=== PATIENT | male | born 1955 | race Two or more races ===

== ENCOUNTER 2017-03-31 20:14 | Inpatient (IN) | payer MEDICARE, MEDICAID ==
[~2017-03-31] VITALS: Ht 182.9 cm; Wt 70.4 kg
[2017-03-31 20:35] VITALS: BP 124/80
[2017-03-31] MEDS ORDERED: Vancomycin 1.5gm/D5W 250ml 250 ML IVPB ONE (21:15)
[2017-03-31] MEDS ORDERED: Azithromycin 500 MG in NS 275 ML IV ONE (21:15)
[2017-03-31 21:18] LABS: HEMATOCRIT 35.2 % (42.0-52.0); HEMOGLOBIN 11.8 G/DL (14.2-18.0); MEAN CORPUSCULAR VOLUME 85 FL (80-99); PLATELET COUNT 373 K/UL (150-450); RED BLOOD COUNT 4.15 M/UL (4.70-6.10); RED CELL DISTRIBUTION WIDTH 13.3 % (11.6-14.8); WHITE BLOOD COUNT 16.2 K/UL (4.8-10.8)
[2017-03-31 21:19] LABS: BASOPHILS % (AUTO) 0.3 % (0.0-2.0); LYMPHOCYTES % (AUTO) 4.8 % (20.0-45.0); MONOCYTES % (AUTO) 8.3 % (1.0-10.0); NEUTROPHILS % (AUTO) 86.6 % (45.0-75.0)
[2017-03-31 21:35] LABS: ANION GAP 8 mmol/L (5-15); BLOOD UREA NITROGEN 15 mg/dL (7-18); CALCIUM 8.8 MG/DL (8.5-10.1); CARBON DIOXIDE 26 MMOL/L (21-32); CHLORIDE 94 MMOL/L (98-107); CREATININE 0.6 MG/DL (0.55-1.30); POTASSIUM 4.2 MMOL/L (3.5-5.1); SODIUM 128 MMOL/L (136-145)
--- NOTE | 2017-03-31 21:47 | Emergency Room Report ---
History of Present Illness General Chief Complaint: Fever Source: Patient, EMS, PMD Present Illness HPI 61-year-old male, history of hypertension, hyperlipidemia, schizophrenia, anxiety disorder, p/w cough and fever for 3 days. Patient is coming from jail, he is a poor historian. Pt states cough is productive, with clear non bloody sputum. Denies runny nose or myalgias. No chest pain no abdominal pain no diarrhea or vomiting Allergies: Coded Allergies: HALOPERIDOL (Verified Allergy, Mild, 03/31/17) Patient History Past Medical History: see triage record Past Surgical History: none Pertinent Family History: none Reviewed Nursing Documentation: PMH: Agreed, PSxH: Agreed Nursing Documentation-PMH Hx Hypertension: Yes - hyperlipidemia History Of Psychiatric Problem: Yes - anxiety, schizophrenia Review of Systems All Other Systems: negative except mentioned in HPI Physical Exam Vital Signs Date Time Temp Pulse Resp B/P (MAP) Pulse Ox O2 Delivery O2 Flow Rate FiO2 03/31/17 20:06 98.5 116 20 124/80 96 Nasal Cannula 2.0 98.4 Sp02 EP Interpretation: reviewed, normal General Appearance: alert, GCS 15, non-toxic, moderate distress Head: normocephalic, atraumatic Eyes: bilateral eye normal inspection, bilateral eye PERRL, bilateral eye EOMI ENT: normal ENT inspection, normal pharynx, normal voice, moist mucus membranes Neck: normal inspection, full range of motion, supple Respiratory: other - coarse b/s L lung base Cardiovascular #1: normal inspection, regular rate, rhythm, no edema, normal capillary refill Cardiovascular #2: 2+ radial (R), 2+ radial (L) Gastrointestinal: normal inspection, non tender, soft, non-distended, no guarding Genitourinary: no CVA tenderness Musculoskeletal: normal inspection, back normal, normal range of motion, non- tender Neurologic: normal inspection, alert, oriented x3, responsive, motor strength/ tone normal, sensory intact, normal gait, speech normal Psychiatric: normal inspection, judgement/insight normal, memory normal Skin: normal inspection, normal color, no rash, warm/dry, well hydrated, normal turgor Medical Decision Making Diagnostic Impression: Primary Impression: HCAP (healthcare-associated pneumonia) Additional Impression: NSTEMI (non-ST elevated myocardial infarction) ER Course 61-year-old male, coming from jail, cough fever and chills DDX: Viral URI vs. pneumonia Plan: Labs, CXR, antibiotics ER course: Labs: leukocytosis Continues to be in mild/moderate respiratory distress. IV fluids given to patient, antibiotics administered afib- HR 100 NSTEMI noted - pt not having CP - asa given only Disposition: Patient is to be admitted to [facility] D/w hospitalist Dr Juarez EKG Diagnostic Results EP Interpretation: Yes Rate: tachy Rhythm: afib ST Segments: No acute changes ASA given to patient: No Rhythm Strip EP Interpretation: Yes Rate: 89 Rhythm: NSR, no PVCs, no ectopy Chest X-ray CXR: Ordered: Yes 1 view Indication: SOB EP interpretation: Yes Interpretation: +Infiltrate left sided Impression: L sided pneumonia Electronically signed by Hamzah Kelly MD Laboratory Tests Test 03/31/17 20:47 04/01/17 06:50 04/01/17 09:34 White Blood Count 16.2 K/UL (4.8-10.8) H 16.4 K/UL (4.8-10.8) H 17.3 K/UL (4.8-10.8) H Red Blood Count 4.15 M/UL (4.70-6.10) L 4.25 M/UL (4.70-6.10) L 4.45 M/UL (4.70-6.10) L Hemoglobin 11.8 G/DL (14.2-18.0) L 12.4 G/DL (14.2-18.0) L 12.8 G/DL (14.2-18.0) L Hematocrit 35.2 % (42.0-52.0) L 36.4 % (42.0-52.0) L 38.0 % (42.0-52.0) L Mean Corpuscular Volume 85 FL (80-99) 86 FL (80-99) 86 FL (80-99) Mean Corpuscular Hemoglobin 28.4 PG (27.0-31.0) 29.1 PG (27.0-31.0) 28.8 PG (27.0-31.0) Mean Corpuscular Hemoglobin Concent 33.6 G/DL (32.0-36.0) 34.0 G/DL (32.0-36.0) 33.6 G/DL (32.0-36.0) Red Cell Distribution Width 13.3 % (11.6-14.8) 14.0 % (11.6-14.8) 13.9 % (11.6-14.8) Platelet Count 373 K/UL (150-450) 375 K/UL (150-450) 409 K/UL (150-450) Mean Platelet Volume 4.9 FL (6.5-10.1) L 4.3 FL (6.5-10.1) L 4.7 FL (6.5-10.1) L Neutrophils (%) (Auto) 86.6 % (45.0-75.0) H % (45.0-75.0) % (45.0-75.0) Lymphocytes (%) (Auto) 4.8 % (20.0-45.0) L % (20.0-45.0) % (20.0-45.0) Monocytes (%) (Auto) 8.3 % (1.0-10.0) % (1.0-10.0) % (1.0-10.0) Eosinophils (%) (Auto) 0.0 % (0.0-3.0) % (0.0-3.0) % (0.0-3.0) Basophils (%) (Auto) 0.3 % (0.0-2.0) % (0.0-2.0) % (0.0-2.0) Sodium Level 128 MMOL/L (136-145) L 130 MMOL/L (136-145) L Potassium Level 4.2 MMOL/L (3.5-5.1) 4.1 MMOL/L (3.5-5.1) Chloride Level 94 MMOL/L (98-107) L 95 MMOL/L (98-107) L Carbon Dioxide Level 26 MMOL/L (21-32) 27 MMOL/L (21-32) Anion Gap 8 mmol/L (5-15) 8 mmol/L (5-15) Blood Urea Nitrogen 15 mg/dL (7-18) 15 mg/dL (7-18) Creatinine 0.6 MG/DL (0.55-1.30) 0.6 MG/DL (0.55-1.30) Estimate Glomerular Filtration Rate > 60 mL/min (>60) > 60 mL/min (>60) Glucose Level 172 MG/DL (74-106) H 129 MG/DL (74-106) H Lactic Acid Level 1.60 mmol/L (0.66-2.22) Calcium Level 8.8 MG/DL (8.5-10.1) 9.2 MG/DL (8.5-10.1) Total Bilirubin 1.1 MG/DL (0.2-1.0) H 1.0 MG/DL (0.2-1.0) Direct Bilirubin 0.4 MG/DL (0.0-0.3) H Aspartate Amino Transferase (AST) 46 U/L (15-37) H 60 U/L (15-37) H Alanine Aminotransferase (ALT) 50 U/L (12-78) 68 U/L (12-78) Alkaline Phosphatase 132 U/L (46-116) H 157 U/L (46-116) H Troponin I 0.528 ng/mL (0.000-0.056) 0.394 ng/mL (0.000-0.056) Pro-B-Type Natriuretic Peptide 3638 pg/mL (0-125) H 7873 pg/mL (0-125) H 8268 pg/mL (0-125) H Total Protein 6.6 G/DL (6.4-8.2) 8.2 G/DL (6.4-8.2) Albumin 2.7 G/DL (3.4-5.0) L 2.7 G/DL (3.4-5.0) L Globulin 3.9 g/dL 5.5 g/dL Albumin/Globulin Ratio 0.7 (1.0-2.7) L 0.5 (1.0-2.7) L Differential Total Cells Counted 100 100 Neutrophils % (Manual) 86 % (45-75) H 85 % (45-75) H Lymphocytes % (Manual) 3 % (20-45) L 6 % (20-45) L Monocytes % (Manual) 9 % (1-10) 9 % (1-10) Eosinophils % (Manual) 0 % (0-3) 0 % (0-3) Basophils % (Manual) 0 % (0-2) 0 % (0-2) Band Neutrophils 2 % (0-8) 0 % (0-8) Platelet Estimate Adequate Adequate Platelet Morphology Normal Normal Red Blood Cell Morphology Normal Normal Prothrombin Time 11.5 SEC (9.30-11.50) Prothrombin Time INR 1.1 (0.9-1.1) PTT 32 SEC (23-33) Hemoglobin A1c 6.8 % (4.3-6.0) H Osmolality 279 mOsm/kg (297-317) L Uric Acid 2.6 MG/DL (2.6-7.2) C-Reactive Protein, Quantitative 30.3 mg/dL (0.00-0.90) H Triglycerides Level 85 MG/DL (30-150) Cholesterol Level 72 MG/DL (< 200) LDL Cholesterol 45 mg/dL (<100) HDL Cholesterol 12 MG/DL (40-60) L Cholesterol/HDL Ratio 6.0 (3.3-4.4) H Thyroid Stimulating Hormone (TSH) 0.172 uiU/mL (0.358-3.740) Last Vital Signs Date Time Temp Pulse Resp B/P (MAP) Pulse Ox O2 Delivery O2 Flow Rate FiO2 03/31/17 20:06 98.5 116 20 124/80 96 Nasal Cannula 2.0 98.4 Disposition: ADMITTED INPATIENT Condition: Serious Referrals: Michel Connelly MD (PCP) Hamzah Kelly M.D. Mar 31, 2017 21:47
[2017-03-31 21:48] LABS: ALANINE AMINOTRANSFERASE 50 U/L (12-78); ALBUMIN 2.7 G/DL (3.4-5.0); ALBUMIN/GLOBULIN RATIO 0.7 (1.0-2.7); ALKALINE PHOSPHATASE 132 U/L (46-116); ASPARTATE AMINO TRANSFERASE 46 U/L (15-37); BILIRUBIN,TOTAL 1.1 MG/DL (0.2-1.0)
[2017-03-31 21:50] LABS: BILIRUBIN,DIRECT 0.4 MG/DL (0.0-0.3)
[2017-03-31] MEDS ORDERED: Zosyn 3.375gm inj ONE (21:50)
[2017-03-31] MEDS ORDERED: Piperacillin/Tazobactam 3.375 GM in NS 110 ML IVPB ONE (22:00)
[2017-03-31] MEDS ORDERED: ZYPREXA10 M1 (23:03)
[2017-03-31] MEDS ORDERED: TAMSULOSIN HCL0.4 MG ORAL (23:03)
[2017-03-31] MEDS ORDERED: COLACE100 MG/10 GT (23:03)
[2017-03-31] MEDS ORDERED: ATORVASTATIN CA20 MG ORAL (23:03)
[2017-03-31] MEDS ORDERED: ZYPREXA10 MG ORAL (23:03)
[2017-03-31] MEDS ORDERED: CALCIUM 500 +1 EAC6 PO (23:10)
[2017-03-31] MEDS ORDERED: TOPROL XL50 MG ORAL (23:10)
[2017-03-31] MEDS ORDERED: ACETAMINOPHEN325 M1 ORAL (23:10)
[2017-03-31] MEDS ORDERED: TEMAZEPAM30 MG ORAL (23:10)
[2017-04-01] VITALS: BP 195/118
[2017-04-01] MEDS ORDERED: Metoprolol Tartrate 50mg tab ORAL ONE (00:15)
[2017-04-01 04:00] VITALS: BP 150/97
[2017-04-01] MEDS ORDERED: Digoxin 0.5mg/2ml Inj IVP ONE (06:30)
[2017-04-01 08:00] VITALS: BP 156/104
[2017-04-01 08:24] LABS: HEMATOCRIT 36.4 % (42.0-52.0); HEMOGLOBIN 12.4 G/DL (14.2-18.0); MEAN CORPUSCULAR VOLUME 86 FL (80-99); PLATELET COUNT 375 K/UL (150-450); RED BLOOD COUNT 4.25 M/UL (4.70-6.10); WHITE BLOOD COUNT 16.4 K/UL (4.8-10.8)
[2017-04-01 08:54] LABS: INR 1.1 (0.9-1.1)
[2017-04-01] MEDS ORDERED: Calcium Carbonate 500mg w/Vit D 200iu tab ORAL SCH (09:00)
[2017-04-01] MEDS ORDERED: Docusate 100mg cap ORAL SCH (09:00)
[2017-04-01] MEDS: dilTIAZem HCl 30mg tab ORAL SCH ×3 (09:19→17:30)
[2017-04-01] MEDS: Metoprolol Succinate XL 50mg tab ORAL SCH ×2 (09:22→17:30)
[2017-04-01 10:04] LABS: HEMOGLOBIN 12.8 G/DL (14.2-18.0); MEAN CORPUSCULAR VOLUME 86 FL (80-99); PLATELET COUNT 409 K/UL (150-450); RED BLOOD COUNT 4.45 M/UL (4.70-6.10); RED CELL DISTRIBUTION WIDTH 13.9 % (11.6-14.8); WHITE BLOOD COUNT 17.3 K/UL (4.8-10.8)
--- NOTE | 2017-04-01 10:23 | Cardiac Electrophysiology PN ---
Subjective Subjective Cardiology consult dictated. [id number] Objective Last 24 Hour Vital Signs Date Time Temp Pulse Resp B/P (MAP) Pulse Ox O2 Delivery O2 Flow Rate FiO2 04/01/17 09:22 107 156/104 04/01/17 09:19 107 156/104 04/01/17 06:27 122 04/01/17 04:00 96.9 24 150/97 100 Nasal Cannula 4.0 04/01/17 04:00 97 04/01/17 01:17 121 153/85 04/01/17 00:30 126 195/118 04/01/17 00:10 98.5 20 124/80 96 Nasal Cannula 2.0 98.4 04/01/17 00:00 96.9 126 24 195/118 96 Nasal Cannula 4.0 04/01/17 00:00 142 03/31/17 20:35 98.4 20 124/80 96 Nasal Cannula 2.0 98.4 03/31/17 20:06 98.5 116 20 124/80 96 Nasal Cannula 2.0 98.4 Intake and Output 03/31/17 04/01/17 19:00 07:00 Intake Total 0 ml Output Total 250 ml Balance -250 ml Intake Oral 0 ml Output Urine Total 250 ml Laboratory Tests Test 03/31/17 20:47 04/01/17 06:50 04/01/17 09:34 White Blood Count 16.2 K/UL (4.8-10.8) H 16.4 K/UL (4.8-10.8) H 17.3 K/UL (4.8-10.8) H Red Blood Count 4.15 M/UL (4.70-6.10) L 4.25 M/UL (4.70-6.10) L 4.45 M/UL (4.70-6.10) L Hemoglobin 11.8 G/DL (14.2-18.0) L 12.4 G/DL (14.2-18.0) L 12.8 G/DL (14.2-18.0) L Hematocrit 35.2 % (42.0-52.0) L 36.4 % (42.0-52.0) L 38.0 % (42.0-52.0) L Mean Corpuscular Volume 85 FL (80-99) 86 FL (80-99) 86 FL (80-99) Mean Corpuscular Hemoglobin 28.4 PG (27.0-31.0) 29.1 PG (27.0-31.0) 28.8 PG (27.0-31.0) Mean Corpuscular Hemoglobin Concent 33.6 G/DL (32.0-36.0) 34.0 G/DL (32.0-36.0) 33.6 G/DL (32.0-36.0) Red Cell Distribution Width 13.3 % (11.6-14.8) 14.0 % (11.6-14.8) 13.9 % (11.6-14.8) Platelet Count 373 K/UL (150-450) 375 K/UL (150-450) 409 K/UL (150-450) Mean Platelet Volume 4.9 FL (6.5-10.1) L 4.3 FL (6.5-10.1) L 4.7 FL (6.5-10.1) L Neutrophils (%) (Auto) 86.6 % (45.0-75.0) H % (45.0-75.0) % (45.0-75.0) Lymphocytes (%) (Auto) 4.8 % (20.0-45.0) L % (20.0-45.0) % (20.0-45.0) Monocytes (%) (Auto) 8.3 % (1.0-10.0) % (1.0-10.0) % (1.0-10.0) Eosinophils (%) (Auto) 0.0 % (0.0-3.0) % (0.0-3.0) % (0.0-3.0) Basophils (%) (Auto) 0.3 % (0.0-2.0) % (0.0-2.0) % (0.0-2.0) Sodium Level 128 MMOL/L (136-145) L Pending Potassium Level 4.2 MMOL/L (3.5-5.1) Pending Chloride Level 94 MMOL/L (98-107) L Pending Carbon Dioxide Level 26 MMOL/L (21-32) Pending Anion Gap 8 mmol/L (5-15) Blood Urea Nitrogen 15 mg/dL (7-18) Pending Creatinine 0.6 MG/DL (0.55-1.30) Pending Estimat Glomerular Filtration Rate > 60 mL/min (>60) Pending Glucose Level 172 MG/DL (74-106) H Pending Lactic Acid Level 1.60 mmol/L (0.66-2.22) Calcium Level 8.8 MG/DL (8.5-10.1) Pending Total Bilirubin 1.1 MG/DL (0.2-1.0) H Pending Direct Bilirubin 0.4 MG/DL (0.0-0.3) H Aspartate Amino Transf (AST/SGOT) 46 U/L (15-37) H Pending Alanine Aminotransferase (ALT/SGPT) 50 U/L (12-78) Pending Alkaline Phosphatase 132 U/L (46-116) H Pending Troponin I 0.528 ng/mL (0.000-0.056) 0.394 ng/mL (0.000-0.056) Pro-B-Type Natriuretic Peptide 3638 pg/mL (0-125) H 7873 pg/mL (0-125) H Pending Total Protein 6.6 G/DL (6.4-8.2) Pending Albumin 2.7 G/DL (3.4-5.0) L Pending Globulin 3.9 g/dL Pending Albumin/Globulin Ratio 0.7 (1.0-2.7) L Differential Total Cells Counted 100 Neutrophils % (Manual) 86 % (45-75) H Pending Lymphocytes % (Manual) 3 % (20-45) L Pending Monocytes % (Manual) 9 % (1-10) Eosinophils % (Manual) 0 % (0-3) Basophils % (Manual) 0 % (0-2) Band Neutrophils 2 % (0-8) Platelet Estimate Adequate Pending Platelet Morphology Normal Pending Red Blood Cell Morphology Normal Prothrombin Time 11.5 SEC (9.30-11.50) Prothromb Time International Ratio 1.1 (0.9-1.1) Activated Partial Thromboplast Time 32 SEC (23-33) Hemoglobin A1c 6.8 % (4.3-6.0) H Osmolality Pending Uric Acid Pending C-Reactive Protein, Quantitative Pending Triglycerides Level Pending Cholesterol Level Pending LDL Cholesterol Pending HDL Cholesterol Pending Cholesterol/HDL Ratio Pending Thyroid Stimulating Hormone (TSH) Pending DORINDA WEN Apr 01, 2017 10:23
--- NOTE | 2017-04-01 10:39 | Cardiology Report ---
APPROVED REPORT EKG Measurement Heart [id number] Atrial fibrillation with rapid ventricular response Abnormal ECG
--- NOTE | 2017-04-01 10:46 | Diagnostic Imaging Report ---
Indication: Chest pain Comparison: None A single view chest radiograph was obtained. Findings: Prominent pulmonary vascularity demonstrated with interstitial densities bilaterally and diffusely. Heart is borderline enlarged. There is a small nodular focus of airspace disease or nodule in the left lateral lung. Follow-up until resolution is highly recommended. Bones are slightly osteopenic. IMPRESSION: Evidence of congestive heart failure slice interstitial edema. Asymmetric nodular opacity lateral left lung base. Consider superimposed pneumonia. Small mass or nodule not excluded. Follow-up until resolution is recommended. If the density persists, recommend CT for evaluation.
[2017-04-01 10:49] LABS: ALANINE AMINOTRANSFERASE 68 U/L (12-78); ALBUMIN 2.7 G/DL (3.4-5.0); ALBUMIN/GLOBULIN RATIO 0.5 (1.0-2.7); ALKALINE PHOSPHATASE 157 U/L (46-116); ANION GAP 8 mmol/L (5-15); ASPARTATE AMINO TRANSFERASE 60 U/L (15-37); BLOOD UREA NITROGEN 15 mg/dL (7-18); CALCIUM 9.2 MG/DL (8.5-10.1); CARBON DIOXIDE 27 MMOL/L (21-32); CHLORIDE 95 MMOL/L (98-107); CHOLESTEROL 72 MG/DL (< 200); CREATININE 0.6 MG/DL (0.55-1.30); HDL CHOLESTEROL 12 MG/DL (40-60); POTASSIUM 4.1 MMOL/L (3.5-5.1); SODIUM 130 MMOL/L (136-145); TRIGLYCERIDES 85 MG/DL (30-150)
[2017-04-01 12:00] VITALS: BP 130/80
[2017-04-01] MEDS: Azithromycin 250mg tab ORAL SCH (12:21)
[2017-04-01] MEDS: Enoxaparin 80mg Inj SUBQ SCH ×3 (12:23→21:34)
--- NOTE | 2017-04-01 13:12 | Consultation ---
Consult Note Consult Note asked to eval for HTN OOC BP was 195/118 when I was called 61-year-old male, history of hypertension, hyperlipidemia, schizophrenia, anxiety disorder, p/w cough and fever for 3 days. Patient is coming from long term, he is a poor historian. Pt states cough is productive, with clear non bloody sputum. Denies runny nose or myalgias. No chest pain no abdominal pain no diarrhea or vomiting Allergies: Coded Allergies: HALOPERIDOL (Verified Allergy, Mild, 03/31/17) Hx Hypertension: Yes - hyperlipidemia History Of Psychiatric Problem: Yes - anxiety, schizophrenia . Assessment/Plan admitted with Pneumonia HTN OOC At fib Low Na likely psychogenic po water intake mild anemia Low Alb High A1c Plan: PO fluid restriction Medium CHO diet Cardiazem , Lopressor and PRN Clonidine Per cardio CRISTIANO LEVINE Apr 01, 2017 13:12
[2017-04-01] MEDS: Piperacillin/Tazobactam 3.375 GM in NS 110 ML IVPB SCH ×2 (13:53→21:33)
[2017-04-01 15:58] LABS: APPEARANCE,URINE CLEAR; BILIRUBIN, URINE NEGATIVE (NEGATIVE); GLUCOSE, URINE (UA) NEGATIVE (NEGATIVE); KETONES,URINE 2+ (NEGATIVE); LEUKOCYTE ESTERASE ,URINE 1+ (NEGATIVE); NITRITE,URINE NEGATIVE (NEGATIVE); PH,URINE 6.5 (4.5-8.0); PROTEIN,URINE 2+ (NEGATIVE); UROBILINOGEN,URINE 8 MG/DL (0.0-1.0)
[2017-04-01 16:00] VITALS: BP 140/87
[2017-04-01 16:01] LABS: COLOR,URINE YELLOW
[2017-04-01] MEDS: Docusate 100mg cap ORAL SCH (17:30)
--- NOTE | 2017-04-01 18:40 | Consultation ---
History of Present Illness General Date patient seen: Apr 01, 2017 Chief Complaint: Fever Present Illness HPI 61-year-old male, history of hypertension, hyperlipidemia, schizophrenia, anxiety disorder, p/w cough and fever for 3 days. the pt has been disoriented he thinks its 2018 and the month is june, the pt was unable to provide meaningful info. he was agitated today and was difficult to redirect. Allergies: Coded Allergies: HALOPERIDOL (Verified Allergy, Mild, 03/31/17) Medication History Scheduled Atorvastatin Calcium* (Atorvastatin Calcium*), 10 MG ORAL BEDTIME, (Reported) Calcium Carbonate/Vitamin D3 (Calcium 500 + Vit D 200 Caplet), 1 EACH PO DAILY, (Reported) Docusate Sodium (Docusate Sodium), 100 MG GT DAILY, (Reported) Metoprolol Succinate* (Toprol Xl*), 50 MG ORAL BID, (Reported) Olanzapine* (Zyprexa*), 10 MG ORAL DAILY, (Reported) Tamsulosin Hcl (Tamsulosin Hcl*), 0.4 MG ORAL BEDTIME, (Reported) Scheduled PRN Acetaminophen* (Acetaminophen 325MG Tablet*), 650 MG ORAL Q4H PRN for For Pain, (Reported) Temazepam* (Temazepam*), 15 MG ORAL BEDTIME PRN for Insomnia, (Reported) Miscellaneous Medications Olanzapine (Zyprexa), 10 MG, (Reported) Patient History Limited by: medical condition History Provided By: Patient, Medical Record, PMD Healthcare decision maker Resuscitation status Full Code Advanced Directive on File No Past Medical/Surgical History Past Medical/Surgical History: (1) NSTEMI (non-ST elevated myocardial infarction) (2) HCAP (healthcare-associated pneumonia) (3) Shortness of breath (4) PNA (pneumonia) Review of Systems Psychiatric: Reports: prior hx, anxiety, depressed feelings, emotional problems Physical Exam General Appearance: no apparent distress, alert, confused, agitated Last 24 Hour Vital Signs Date Time Temp Pulse Resp B/P (MAP) Pulse Ox O2 Delivery O2 Flow Rate FiO2 04/01/17 17:30 79 140/87 04/01/17 17:30 79 140/87 04/01/17 16:00 97.5 79 20 140/87 95 Nasal Cannula 4.0 04/01/17 16:00 67 04/01/17 12:22 81 130/80 04/01/17 12:00 97.7 71 20 130/80 94 Nasal Cannula 4.0 04/01/17 12:00 82 04/01/17 09:22 107 156/104 04/01/17 09:19 107 156/104 04/01/17 08:00 106 04/01/17 08:00 99.0 107 20 156/104 96 Nasal Cannula 4.0 04/01/17 06:27 122 04/01/17 04:00 96.9 24 150/97 100 Nasal Cannula 4.0 04/01/17 04:00 97 04/01/17 01:17 121 153/85 04/01/17 00:30 126 195/118 04/01/17 00:10 98.5 20 124/80 96 Nasal Cannula 2.0 98.4 04/01/17 00:00 96.9 126 24 195/118 96 Nasal Cannula 4.0 04/01/17 00:00 142 03/31/17 20:35 98.4 20 124/80 96 Nasal Cannula 2.0 98.4 03/31/17 20:06 98.5 116 20 124/80 96 Nasal Cannula 2.0 98.4 Intake and Output 03/31/17 04/01/17 19:00 07:00 Intake Total 0 ml Output Total 250 ml Balance -250 ml Intake Oral 0 ml Output Urine Total 250 ml Laboratory Tests Test 03/31/17 20:47 04/01/17 06:50 04/01/17 09:34 04/01/17 15:20 White Blood Count 16.2 K/UL (4.8-10.8) H 16.4 K/UL (4.8-10.8) H 17.3 K/UL (4.8-10.8) H Red Blood Count 4.15 M/UL (4.70-6.10) L 4.25 M/UL (4.70-6.10) L 4.45 M/UL (4.70-6.10) L Hemoglobin 11.8 G/DL (14.2-18.0) L 12.4 G/DL (14.2-18.0) L 12.8 G/DL (14.2-18.0) L Hematocrit 35.2 % (42.0-52.0) L 36.4 % (42.0-52.0) L 38.0 % (42.0-52.0) L Mean Corpuscular Volume 85 FL (80-99) 86 FL (80-99) 86 FL (80-99) Mean Corpuscular Hemoglobin 28.4 PG (27.0-31.0) 29.1 PG (27.0-31.0) 28.8 PG (27.0-31.0) Mean Corpuscular Hemoglobin Concent 33.6 G/DL (32.0-36.0) 34.0 G/DL (32.0-36.0) 33.6 G/DL (32.0-36.0) Red Cell Distribution Width 13.3 % (11.6-14.8) 14.0 % (11.6-14.8) 13.9 % (11.6-14.8) Platelet Count 373 K/UL (150-450) 375 K/UL (150-450) 409 K/UL (150-450) Mean Platelet Volume 4.9 FL (6.5-10.1) L 4.3 FL (6.5-10.1) L 4.7 FL (6.5-10.1) L Neutrophils (%) (Auto) 86.6 % (45.0-75.0) H % (45.0-75.0) % (45.0-75.0) Lymphocytes (%) (Auto) 4.8 % (20.0-45.0) L % (20.0-45.0) % (20.0-45.0) Monocytes (%) (Auto) 8.3 % (1.0-10.0) % (1.0-10.0) % (1.0-10.0) Eosinophils (%) (Auto) 0.0 % (0.0-3.0) % (0.0-3.0) % (0.0-3.0) Basophils (%) (Auto) 0.3 % (0.0-2.0) % (0.0-2.0) % (0.0-2.0) Sodium Level 128 MMOL/L (136-145) L 130 MMOL/L (136-145) L Potassium Level 4.2 MMOL/L (3.5-5.1) 4.1 MMOL/L (3.5-5.1) Chloride Level 94 MMOL/L (98-107) L 95 MMOL/L (98-107) L Carbon Dioxide Level 26 MMOL/L (21-32) 27 MMOL/L (21-32) Anion Gap 8 mmol/L (5-15) 8 mmol/L (5-15) Blood Urea Nitrogen 15 mg/dL (7-18) 15 mg/dL (7-18) Creatinine 0.6 MG/DL (0.55-1.30) 0.6 MG/DL (0.55-1.30) Estimat Glomerular Filtration Rate > 60 mL/min (>60) > 60 mL/min (>60) Glucose Level 172 MG/DL (74-106) H 129 MG/DL (74-106) H Lactic Acid Level 1.60 mmol/L (0.66-2.22) Calcium Level 8.8 MG/DL (8.5-10.1) 9.2 MG/DL (8.5-10.1) Total Bilirubin 1.1 MG/DL (0.2-1.0) H 1.0 MG/DL (0.2-1.0) Direct Bilirubin 0.4 MG/DL (0.0-0.3) H Aspartate Amino Transf (AST/SGOT) 46 U/L (15-37) H 60 U/L (15-37) H Alanine Aminotransferase (ALT/SGPT) 50 U/L (12-78) 68 U/L (12-78) Alkaline Phosphatase 132 U/L (46-116) H 157 U/L (46-116) H Troponin I 0.528 ng/mL (0.000-0.056) 0.394 ng/mL (0.000-0.056) Pro-B-Type Natriuretic Peptide 3638 pg/mL (0-125) H 7873 pg/mL (0-125) H 8268 pg/mL (0-125) H Total Protein 6.6 G/DL (6.4-8.2) 8.2 G/DL (6.4-8.2) Albumin 2.7 G/DL (3.4-5.0) L 2.7 G/DL (3.4-5.0) L Globulin 3.9 g/dL 5.5 g/dL Albumin/Globulin Ratio 0.7 (1.0-2.7) L 0.5 (1.0-2.7) L Differential Total Cells Counted 100 100 Neutrophils % (Manual) 86 % (45-75) H 85 % (45-75) H Lymphocytes % (Manual) 3 % (20-45) L 6 % (20-45) L Monocytes % (Manual) 9 % (1-10) 9 % (1-10) Eosinophils % (Manual) 0 % (0-3) 0 % (0-3) Basophils % (Manual) 0 % (0-2) 0 % (0-2) Band Neutrophils 2 % (0-8) 0 % (0-8) Platelet Estimate Adequate Adequate Platelet Morphology Normal Normal Red Blood Cell Morphology Normal Normal Prothrombin Time 11.5 SEC (9.30-11.50) Prothromb Time International Ratio 1.1 (0.9-1.1) Activated Partial Thromboplast Time 32 SEC (23-33) Hemoglobin A1c 6.8 % (4.3-6.0) H Osmolality 279 mOsm/kg (297-317) L Uric Acid 2.6 MG/DL (2.6-7.2) C-Reactive Protein, Quantitative 30.3 mg/dL (0.00-0.90) H Triglycerides Level 85 MG/DL (30-150) Cholesterol Level 72 MG/DL (< 200) LDL Cholesterol 45 mg/dL (<100) HDL Cholesterol 12 MG/DL (40-60) L Cholesterol/HDL Ratio 6.0 (3.3-4.4) H Thyroid Stimulating Hormone (TSH) 0.172 uiU/mL (0.358-3.740) Urine Color Yellow Urine Appearance Clear Urine pH 6.5 (4.5-8.0) Urine Specific [place] 1.015 (1.005-1.035) Urine Protein 2+ (NEGATIVE) H Urine Glucose (UA) Negative (NEGATIVE) Urine Ketones 2+ (NEGATIVE) H Urine Occult Blood 5+ (NEGATIVE) H Urine Nitrite Negative (NEGATIVE) Urine Bilirubin Negative (NEGATIVE) Urine Urobilinogen 8 MG/DL (0.0-1.0) H Urine Leukocyte Esterase 1+ (NEGATIVE) H Urine RBC Tntc /HPF (0 - 0) H Urine WBC 2-4 /HPF (0 - 0) Urine Squamous Epithelial Cells None /LPF (NONE/OCC) Urine Bacteria Few /HPF (NONE) Urine Osmolality 870 mOsm/kg (429-449) H Urine Random Sodium 22 MEQ/L (20-110) Urine Legionella Antigen Pending Height (Feet): 6 Weight (Pounds): 180 Medications Current Medications Medications (Trade) Dose Ordered Sig/Jeff Route PRN Reason Start Time Stop Time Status Last Admin Dose Admin Acetaminophen (Tylenol) 650 mg Q4H PRN ORAL Mild Pain/Temp > 100.5 03/31/17 23:45 04/30/17 23:44 Aspirin (Ecotrin) 81 mg DAILY ORAL 04/02/17 09:00 05/02/17 08:59 Atorvastatin Calcium (Lipitor) 10 mg BEDTIME ORAL 04/01/17 21:00 05/01/17 20:59 Azithromycin (Zithromax) 250 mg DAILY ORAL 04/01/17 13:00 04/08/17 12:59 04/01/17 12:21 Clonidine HCl (Catapres Tab) 0.1 mg Q4H PRN ORAL For High Blood Pressure 04/01/17 00:15 05/01/17 00:14 Diltiazem HCl (Cardizem) 30 mg EVERY 6 HOURS ORAL 04/01/17 09:00 05/01/17 08:59 04/01/17 17:30 Docusate Sodium (Colace) 100 mg TID ORAL 04/01/17 18:00 05/01/17 08:59 04/01/17 17:30 Enoxaparin Sodium (Lovenox) 80 mg EVERY 12 HOURS SUBQ 04/01/17 11:30 05/01/17 11:29 04/01/17 12:23 Metoprolol Succinate (Toprol XL) 50 mg BID ORAL 04/01/17 09:00 05/01/17 08:59 04/01/17 17:30 Olanzapine (ZyPREXA) 10 mg DAILY ORAL 04/01/17 09:00 05/01/17 08:59 04/01/17 09:18 Pantoprazole (Protonix) 40 mg DAILY ORAL 04/01/17 09:00 05/01/17 08:59 04/01/17 09:19 Piperacillin Sod/ Tazobactam Sod 3.375 gm/Sodium Chloride 110 ml @ 27.5 mls/hr EVERY 8 HOURS IVPB 04/01/17 14:00 04/06/17 13:59 04/01/17 13:53 Risperidone (RisperDAL) 1 mg Q6H PRN ORAL Agitation 04/01/17 15:45 05/01/17 15:44 Risperidone (RisperDAL) 2 mg QHS ORAL 04/01/17 21:00 05/01/17 20:59 Tamsulosin HCl (Flomax) 0.4 mg BEDTIME ORAL 04/01/17 21:00 05/01/17 20:59 Temazepam (Restoril) 30 mg HSPRN PRN ORAL Insomnia 03/31/17 23:45 04/07/17 23:44 Assessment/Plan Status: not improved, unchanged Assessment/Plan encephalopathy agitation risperdal standing risperdal prn Jag Chappell M.D. Apr 01, 2017 18:39
[2017-04-01 20:00] VITALS: BP 127/70
[2017-04-01] MEDS: Tamsulosin 0.4mg cap ORAL SCH (21:33)
--- NOTE | 2017-04-01 21:46 | Consultation ---
DATE OF CONSULTATION: 04/01/2017 CARDIOLOGY CONSULTATION CONSULTING PHYSICIAN: Vernon Mcneil M.D. REFERRING PHYSICIAN: Michel Connelly M.D. REASON FOR CONSULTATION: Elevated troponin and atrial fibrillation. HISTORY OF PRESENT ILLNESS: The patient is a 61-year-old gentleman with history of hypertension, hyperlipidemia, anxiety disorder, and schizophrenia who was brought from [facility] for cough and fever of three days duration. The patient had productive cough. In the emergency room, the patient was found to be in atrial fibrillation with a heart rate of 116. The patient also had elevated troponin and was admitted and a Cardiology consultation was obtained for further evaluation and management. His EKG did not show any acute ST-T changes. The patient received aspirin. REVIEW OF SYSTEMS: Review of systems was negative other than what was mentioned in the history of present illness. PAST MEDICAL HISTORY: 1. Hypertension. 2. Schizophrenia. 3. Hyperlipidemia. 4. Anxiety disorder. FAMILY HISTORY: Noncontributory. SOCIAL HISTORY: He lives in a [facility]. Occasionally smokes cigarettes. PHYSICAL EXAMINATION: VITAL SIGNS: Blood pressure is 156/104, initially was 194/118; pulse was 126, currently is 107; respirations 18; and temperature 96.9. HEAD AND NECK: No JVD. LUNGS: Coarse rhonchi bilaterally. CARDIOVASCULAR: Irregular S1-S2 with no gallop or murmur. ABDOMEN: Soft. EXTREMITIES: No pitting edema. LABORATORY DATA: His labs show white count of 17.2, hemoglobin 12.8, hematocrit 38, and platelet count is 409. His troponin 0.52 and 0.39. BNP is 7873. Sodium 128, potassium 4.2, BUN of 15, creatinine 0.6, and glucose of 172. ASSESSMENT AND PLAN: 1. Troponin elevation. The patient's troponins are only marginally elevated; however, troponin levels are coming down. The patient does not have any chest pain. His BNP is more than 8000 atrial fibrillation with rapid ventricular response. Continue metoprolol 50 mg, Lipitor 10 mg daily, and aspirin 81 mg daily. We will get an echocardiogram to evaluate for ejection fraction and wall motion abnormality. 2. Atrial fibrillation. Continue rate control with metoprolol 50 mg b.i.d. The patient is also on Cardizem 30 mg every six hours. We will start the patient on anticoagulation to prevent thromboembolic events. 3. Hyperlipidemia, on Lipitor. 4. Schizophrenia, on Zyprexa. 5. Pneumonia, on antibiotics. Thank you very much, Dr. Connelly, for allowing me to participate in the care of this patient. Please do not hesitate to contact me for any questions regarding my evaluation. Vernon Mcneil M.D. DR: Charlie JOB#: [id number] CC:
--- NOTE | 2017-04-01 22:16 | Consultation ---
DATE OF CONSULTATION: 04/01/2017 INFECTIOUS DISEASE CONSULTATION CONSULTING PHYSICIAN: Ari Chavez M.D. PRIMARY ATTENDING PHYSICIAN: Michel Connelly M.D. REASON FOR CONSULT: Sepsis, pneumonia. HISTORY OF PRESENT ILLNESS: The patient is a 61-year-old white male, who is a detention resident, admitted with congestion, shortness of breath, and on and off fever. He had atrial fibrillation, tachycardia in hospital, had leukocytosis, and breathing fast. PAST MEDICAL HISTORY: Significant for hypertension, BPH, schizophrenia, and anxiety. ALLERGIES: No known drug allergies. MEDICATIONS: Aspirin, Flomax, atorvastatin, Lovenox, metoprolol, , diltiazem, Protonix, clonidine, Tylenol, temazepam, got the dose of Zosyn and azithromycin and Levaquin last night. SOCIAL HISTORY: residential resident. He states that he is a smoker.. REVIEW OF SYSTEMS: The patient is very slow to response and sometimes speaks in low voice that is inaudible. PHYSICAL EXAMINATION: GENERAL APPEARANCE: He has some respiratory distress, breathing fast. VITAL SIGNS: Pulse of 107, temperature 99 degrees, blood pressure 156/104. HEAD AND NECK: [place] conjunctivae. No oral lesion. HEART: Tachycardic. LUNGS: Clear. Tachypneic. ABDOMEN: Soft and nontender. EXTREMITY: He has no edema. NEUROLOGIC: He is awake, responsive, and obeys simple commands. LABORATORY AND DIAGNOSTIC DATA: WBC 17.3, hemoglobin 12.8, hematocrit 38, and platelets are 409. Sodium 130, potassium 4.1, chloride 91, bicarbonate 27, BUN 15, and creatinine 0.6. Hemoglobin A1c 6.8. Glucose 129. BNP 8268. Troponin is elevated, maximum level is 0.28. Chest x-ray showed CHF and congestion. IMPRESSION: 1. Sepsis, systemic inflammatory response syndrome with leukocytosis, tachycardia, tachypnea Source may be pneumonia 2. Atrial fibrillation. 3. Hyponatremia. 4. Congestive heart failure. 5. Elevated troponin. RECOMMENDATION: We will continue with Zosyn and Zithromax that was started in the ER. We will follow up the cultures. At the end of my exam, I thank Dr. Connelly for involving me in the care of this patient. Ari Chavez M.D. DR: MEHREEN JOB#: [id number] CC: ALETHA
--- NOTE | 2017-04-01 22:46 | Consultation ---
DATE OF CONSULTATION: 04/01/2017 NOTE: POOR AUDIO HEMATOLOGY/ONCOLOGY CONSULTATION CONSULTING PHYSICIAN: Marty Morton M.D. REQUESTING PHYSICIAN: Michel Connelly M.D. REASON FOR CONSULTATION: Evaluation of anemia. HISTORY OF PRESENT ILLNESS: Dear Dr. Connelly, Thank you for this consultation. The patient is a pleasant 61-year-old male who is a assisted resident, presents with cough and fevers. He has a past medical history significant for hyperlipidemia, hypertension, has been having cough, nonbloody, nonproductive. clear. Noted to have an elevated blood pressure. Denies any runny cough, runny nose, or myalgias. No chest pain. No fevers. No chills noted. Hematology Service is again consulted for further evaluation and treatment. PAST MEDICAL HISTORY: None noted. ALLERGIES: . He has schizophrenia. FAMILY HISTORY: Noncontributory. REVIEW OF SYSTEMS: CONSTITUTIONAL: No fevers, chills, or night sweats. SKIN: No rashes, bumps, or itching. HEENT: No headache, hearing or vision changes. BREASTS: No lumps, pain, or discharge. PULMONARY: cough, sputum, shortness of breath several days onset. GENITOURINARY: No dysuria, frequency, or urgency. MUSCULOSKELETAL: No joint swelling, muscle pain, or trauma. PHYSICAL EXAMINATION: VITAL SIGNS: Reviewed. GENERAL: No distress. PULMONARY: Decreased breath sounds. CARDIOVASCULAR: Regular rate. No S3 or S4. ABDOMEN: Soft, nontender, and nondistended. EXTREMITIES: No cyanosis, swelling, or edema. LABORATORY DATA: WBC 16.2, hemoglobin 11.8, hematocrit 35, platelet count 373,000. BUN 15 and creatinine 0.6. ASSESSMENT AND RECOMMENDATIONS: 1. Anemia, may be related to underlying chronic disease. Continue to closely monitor. Consider workup if hemoglobin is less than 10 and it does not require at this particular moment. 2. Leukocytosis, likely secondary to reactive process versus underlying infection. Continue to closely monitor. 3. Hyperlipidemia. Consider use of the Lipitor. Continue medications as needed. 4. Schizophrenia. Psychiatry Service evaluation. 5. Hypertension. Management per Dr. Mcneil, Cardiology Service. 6. Elevated troponin, management per Dr. Mcneil, Cardiology Service. I appreciate the consultation. Marty Morton M.D. DR: ELLEN JOB#: [id number] CC:
[2017-04-02] VITALS: BP 114/78
[2017-04-02] MEDS: dilTIAZem HCl 30mg tab ORAL SCH ×5 (02:48→22:10)
[2017-04-02 04:00] VITALS: BP 120/71
--- NOTE | 2017-04-02 04:15 | History and Physical Report ---
DATE OF ADMISSION: 03/31/2017 NOTE: POOR AUDIO HISTORY OF PRESENT ILLNESS: The patient admitted for shortness of breath and pneumonia. The patient is a poor historian, has leukocytosis, and has [facility] fever [facility] the [facility] and admitted for borderline troponin elevation, pneumonia, and hyponatremia. The patient also had atrial fibrillation on EKG, rate controlled. Again, the patient is a poor historian. The patient also had shortness of breath and cough. The patient has a history of schizophrenia, a poor historian. Denies nausea, vomiting, or diarrhea. . PAST MEDICAL HISTORY: Significant for hyperlipidemia, anxiety, schizophrenia, and dementia. Also, has history of constipation, hypertension, BPH, and insomnia. ALLERGIES: To haloperidol. FAMILY HISTORY: Unable to obtain. SOCIAL HISTORY: alcohol, or illicit drugs. Comes from a [facility]. REVIEW OF SYSTEMS: Unable to obtain, poor historian. PHYSICAL EXAMINATION: VITAL SIGNS: Temperature is 97.7, pulse is 71, and blood pressure 130/80. HEENT: PERRLA. NECK: Supple. CHEST: Decreased breath sounds on both sides equally. CARDIOVASCULAR: Irregularly irregular. GASTROINTESTINAL: Soft. Positive bowel sounds. No organomegaly. EXTREMITIES: No edema. Reflexes equal on both sides. NEUROLOGIC: Not oriented. LABORATORY AND DIAGNOSTIC DATA: EKG shows rate and rhythm. Labs, WBC of 16.2, hemoglobin 11.8, and platelets of 373. Sodium 130, potassium 4.1, BUN of 15, creatinine 0.6, and glucose of 129. Alkaline phosphatase of 167. Troponin of initially 0.5128. BNP of 7873. ASSESSMENT AND PLAN: Hyponatremia. Basically, the patient has elevated troponin as well as leukocytosis, hyponatremia, and atrial fibrillation, and also the patient is a psychiatric patient. I have consulted Dr. Chappell, Dr. Mcneil, Dr. Vick, and Dr. Nur for the above-mentioned diagnoses and treatment. Antibiotics per Dr. Ravi Nur. Michel Connelly M.D. DR: YODIT JOB#: [id number] CC:
[2017-04-02 08:01] VITALS: BP 150/87
[2017-04-02 08:25] LABS: BASOPHILS % (AUTO) 0.6 % (0.0-2.0); HEMATOCRIT 37.4 % (42.0-52.0); HEMOGLOBIN 12.3 G/DL (14.2-18.0); LYMPHOCYTES % (AUTO) 7.6 % (20.0-45.0); MEAN CORPUSCULAR VOLUME 85 FL (80-99); NEUTROPHILS % (AUTO) 84.8 % (45.0-75.0); PLATELET COUNT 434 K/UL (150-450); RED BLOOD COUNT 4.37 M/UL (4.70-6.10); RED CELL DISTRIBUTION WIDTH 13.6 % (11.6-14.8); WHITE BLOOD COUNT 13.7 K/UL (4.8-10.8)
--- NOTE | 2017-04-02 08:27 | Cardiac Electrophysiology PN ---
Assessment/Plan Assessment/Plan 1. Troponin elevation. The troponins are only marginally elevated; however, troponin levels are coming down. The patient does not have any chest pain.Could be due to atrial fibrillation with rapid ventricular response. Continue metoprolol 50 mg, Lipitor 10 mg daily, and aspirin 81 mg daily. Stress test after PNA is resolved. 2. Atrial fibrillation with RVR. On metoprolol 50 mg b.i.d. and Cardizem 30 mg every six hours. On Lovenox 80 sq bid 3. CHF due to diastolic dysfunction with BNP more than 8000.HFpEF EF 65%. Start Lasix 40 iv daily 3. Hyperlipidemia, on Lipitor. 4. Schizophrenia, on Zyprexa. 5. Pneumonia, on antibiotics. CHAPIN RN Subjective Subjective Feeling better. No chest pain or SOB. Still in atrial fib with controlled rate. Objective Last 24 Hour Vital Signs Date Time Temp Pulse Resp B/P (MAP) Pulse Ox O2 Delivery O2 Flow Rate FiO2 04/02/17 08:01 97.2 94 19 150/87 98 Room Air 04/02/17 06:15 97 153/82 04/02/17 04:00 98.2 86 20 120/71 97 Room Air 04/02/17 04:00 96 04/02/17 02:48 97 120/78 04/02/17 00:00 97.6 97 18 114/78 97 Room Air 04/02/17 00:00 83 04/01/17 20:00 83 04/01/17 20:00 98.4 90 21 127/70 96 Room Air 04/01/17 17:30 79 140/87 04/01/17 17:30 79 140/87 04/01/17 16:00 97.5 79 20 140/87 95 Nasal Cannula 4.0 04/01/17 16:00 67 04/01/17 12:22 81 130/80 04/01/17 12:00 97.7 71 20 130/80 94 Nasal Cannula 4.0 04/01/17 12:00 82 04/01/17 09:22 107 156/104 04/01/17 09:19 107 156/104 Intake and Output 04/01/17 04/02/17 19:00 07:00 Intake Total 750.0 ml Output Total 450 ml 400 ml Balance 300.0 ml -400 ml Intake Oral 640 ml IV Total 110.0 ml Output Urine Total 450 ml 400 ml # Voids 2 # Bowel Movements 1 1 Laboratory Tests Test 04/01/17 09:34 04/01/17 15:20 04/02/17 07:25 White Blood Count 17.3 K/UL (4.8-10.8) H Pending Red Blood Count 4.45 M/UL (4.70-6.10) L Pending Hemoglobin 12.8 G/DL (14.2-18.0) L Pending Hematocrit 38.0 % (42.0-52.0) L Pending Mean Corpuscular Volume 86 FL (80-99) Pending Mean Corpuscular Hemoglobin 28.8 PG (27.0-31.0) Pending Mean Corpuscular Hemoglobin Concent 33.6 G/DL (32.0-36.0) Pending Red Cell Distribution Width 13.9 % (11.6-14.8) Pending Platelet Count 409 K/UL (150-450) Pending Mean Platelet Volume 4.7 FL (6.5-10.1) L Pending Neutrophils (%) (Auto) % (45.0-75.0) Pending Lymphocytes (%) (Auto) % (20.0-45.0) Pending Monocytes (%) (Auto) % (1.0-10.0) Pending Eosinophils (%) (Auto) % (0.0-3.0) Pending Basophils (%) (Auto) % (0.0-2.0) Pending Differential Total Cells Counted 100 Neutrophils % (Manual) 85 % (45-75) H Lymphocytes % (Manual) 6 % (20-45) L Monocytes % (Manual) 9 % (1-10) Eosinophils % (Manual) 0 % (0-3) Basophils % (Manual) 0 % (0-2) Band Neutrophils 0 % (0-8) Platelet Estimate Adequate Platelet Morphology Normal Red Blood Cell Morphology Normal Sodium Level 130 MMOL/L (136-145) L Pending Potassium Level 4.1 MMOL/L (3.5-5.1) Pending Chloride Level 95 MMOL/L (98-107) L Pending Carbon Dioxide Level 27 MMOL/L (21-32) Pending Anion Gap 8 mmol/L (5-15) Blood Urea Nitrogen 15 mg/dL (7-18) Pending Creatinine 0.6 MG/DL (0.55-1.30) Pending Estimat Glomerular Filtration Rate > 60 mL/min (>60) Pending Glucose Level 129 MG/DL (74-106) H Pending Hemoglobin A1c 6.8 % (4.3-6.0) H Osmolality 279 mOsm/kg (297-317) L Pending Uric Acid 2.6 MG/DL (2.6-7.2) Pending Calcium Level 9.2 MG/DL (8.5-10.1) Pending Total Bilirubin 1.0 MG/DL (0.2-1.0) Pending Aspartate Amino Transf (AST/SGOT) 60 U/L (15-37) H Pending Alanine Aminotransferase (ALT/SGPT) 68 U/L (12-78) Pending Alkaline Phosphatase 157 U/L (46-116) H Pending C-Reactive Protein, Quantitative 30.3 mg/dL (0.00-0.90) H Pro-B-Type Natriuretic Peptide 8268 pg/mL (0-125) H Pending Total Protein 8.2 G/DL (6.4-8.2) Pending Albumin 2.7 G/DL (3.4-5.0) L Pending Globulin 5.5 g/dL Pending Albumin/Globulin Ratio 0.5 (1.0-2.7) L Triglycerides Level 85 MG/DL (30-150) Pending Cholesterol Level 72 MG/DL (< 200) Pending LDL Cholesterol 45 mg/dL (<100) Pending HDL Cholesterol 12 MG/DL (40-60) L Pending Cholesterol/HDL Ratio 6.0 (3.3-4.4) H Pending Thyroid Stimulating Hormone (TSH) 0.172 uiU/mL (0.358-3.740) Urine Color Yellow Urine Appearance Clear Urine pH 6.5 (4.5-8.0) Urine Specific [place] 1.015 (1.005-1.035) Urine Protein 2+ (NEGATIVE) H Urine Glucose (UA) Negative (NEGATIVE) Urine Ketones 2+ (NEGATIVE) H Urine Occult Blood 5+ (NEGATIVE) H Urine Nitrite Negative (NEGATIVE) Urine Bilirubin Negative (NEGATIVE) Urine Urobilinogen 8 MG/DL (0.0-1.0) H Urine Leukocyte Esterase 1+ (NEGATIVE) H Urine RBC Tntc /HPF (0 - 0) H Urine WBC 2-4 /HPF (0 - 0) Urine Squamous Epithelial Cells None /LPF (NONE/OCC) Urine Bacteria Few /HPF (NONE) Urine Osmolality 870 mOsm/kg (429-449) H Urine Random Sodium 22 MEQ/L (20-110) Urine Legionella Antigen Pending Phosphorus Level Pending Magnesium Level Pending Iron Level Pending Unsaturated Iron Binding Pending Gamma Glutamyl Transpeptidase Pending Troponin I Pending Vitamin B12 Level Pending Microbiology Date/Time Source Procedure Growth Status 03/31/17 20:47 Blood Blood Culture - Preliminary NO GROWTH AFTER 24 HOURS Resulted 03/31/17 20:47 Blood Blood Culture - Preliminary NO GROWTH AFTER 24 HOURS Resulted Objective HEAD AND NECK: No JVD. LUNGS: Coarse rhonchi bilaterally. CARDIOVASCULAR: Irregular S1-S2 with no gallop or murmur. ABDOMEN: Soft. EXTREMITIES: No pitting edema. DORINDA WEN Apr 02, 2017 08:27
[2017-04-02 08:32] LABS: % IRON SATURATION 13 % (15-50); IRON 26 ug/dL (50-175); TOTAL IRON BINDING CAPACITY 200 ug/dL (250-450)
[2017-04-02] MEDS: Metoprolol Succinate XL 50mg tab ORAL SCH ×2 (08:32→17:26)
[2017-04-02] MEDS: Aspirin EC 81mg tab ORAL SCH (08:32)
[2017-04-02] MEDS: Docusate 100mg cap ORAL SCH ×3 (08:33→17:26)
[2017-04-02] MEDS: Azithromycin 250mg tab ORAL SCH (08:33)
[2017-04-02] MEDS: Enoxaparin 80mg Inj SUBQ SCH ×2 (08:35→20:49)
[2017-04-02 08:36] LABS: GAMMA GLUTAMYL TRANSPEPTIDASE 55 U/L (5-85); PHOSPHORUS 3.1 MG/DL (2.5-4.9)
[2017-04-02 08:42] LABS: ALANINE AMINOTRANSFERASE 67 U/L (12-78); ALBUMIN 2.6 G/DL (3.4-5.0); ALBUMIN/GLOBULIN RATIO 0.5 (1.0-2.7); ALKALINE PHOSPHATASE 144 U/L (46-116); ANION GAP 8 mmol/L (5-15); ASPARTATE AMINO TRANSFERASE 50 U/L (15-37); BLOOD UREA NITROGEN 16 mg/dL (7-18); CARBON DIOXIDE 27 MMOL/L (21-32); CHLORIDE 96 MMOL/L (98-107); CHOLESTEROL 72 MG/DL (< 200); CREATININE 0.6 MG/DL (0.55-1.30); HDL CHOLESTEROL 13 MG/DL (40-60); POTASSIUM 3.6 MMOL/L (3.5-5.1); SODIUM 131 MMOL/L (136-145); TRIGLYCERIDES 87 MG/DL (30-150)
[2017-04-02] MEDS: Piperacillin/Tazobactam 3.375 GM in NS 110 ML IVPB SCH ×3 (09:31→22:10)
[2017-04-02 12:01] VITALS: BP 129/72
--- NOTE | 2017-04-02 12:53 | Nephrology Progress Note ---
Assessment/Plan Assessment admitted with Pneumonia HTN OOC At fib Low Na likely psychogenic po water intake mild anemia Low Alb High A1c Plan Plan: PO fluid restriction Medium CHO diet Cardiazem , Lopressor and PRN Clonidine Per cardio one dose Venofer Echo 65% Ej Fx Subjective ROS Limited/Unobtainable: No Constitutional: Reports: malaise Objective Objective Last 24 Hour Vital Signs Date Time Temp Pulse Resp B/P (MAP) Pulse Ox O2 Delivery O2 Flow Rate FiO2 04/02/17 12:01 98.2 91 19 129/72 96 Nasal Cannula 4.0 04/02/17 08:32 94 150/87 04/02/17 08:01 97.2 94 19 150/87 98 Room Air 04/02/17 08:00 100 04/02/17 06:15 97 153/82 04/02/17 04:00 98.2 86 20 120/71 97 Room Air 04/02/17 04:00 96 04/02/17 02:48 97 120/78 04/02/17 00:00 97.6 97 18 114/78 97 Room Air 04/02/17 00:00 83 04/01/17 20:00 83 04/01/17 20:00 98.4 90 21 127/70 96 Room Air 04/01/17 17:30 79 140/87 04/01/17 17:30 79 140/87 04/01/17 16:00 97.5 79 20 140/87 95 Nasal Cannula 4.0 04/01/17 16:00 67 Intake and Output 04/01/17 04/02/17 19:00 07:00 Intake Total 750.0 ml Output Total 450 ml 400 ml Balance 300.0 ml -400 ml Intake Oral 640 ml IV Total 110.0 ml Output Urine Total 450 ml 400 ml # Voids 2 # Bowel Movements 1 1 Laboratory Tests 04/01/17 15:20: Urine Color Yellow, Urine Appearance Clear, Urine pH 6.5, Urine Specific [place] 1.015, Urine Protein 2+H, Urine Glucose (UA) Negative, Urine Ketones 2+H , Urine Occult Blood 5+H, Urine Nitrite Negative, Urine Bilirubin Negative, Urine Urobilinogen 8H, Urine Leukocyte Esterase 1+H, Urine RBC TntcH, Urine WBC 2-4, Urine Squamous Epithelial Cells None, Urine Bacteria Few, Urine Osmolality 870H, Urine Random Sodium 22, Urine Legionella Antigen [Pending] 04/02/17 07:25: White Blood Count 13.7H, Red Blood Count 4.37L, Hemoglobin 12.3L, Hematocrit 37.4L, Mean Corpuscular Volume 85, Mean Corpuscular Hemoglobin 28.2, Mean Corpuscular Hemoglobin Concent 33.0, Red Cell Distribution Width 13.6, Platelet Count 434, Mean Platelet Volume 4.7L, Neutrophils (%) (Auto) 84.8H, Lymphocytes (%) (Auto) 7.6L, Monocytes (%) (Auto) 7.0, Eosinophils (%) (Auto) 0.0, Basophils (%) (Auto) 0.6, Sodium Level 131L, Potassium Level 3.6, Chloride Level 96L, Carbon Dioxide Level 27, Anion Gap 8, Blood Urea Nitrogen 16, Creatinine 0.6, Estimat Glomerular Filtration Rate > 60, Glucose Level 122H, Osmolality 281L, Uric Acid 2.1L, Calcium Level 9.0, Phosphorus Level 3.1, Magnesium Level 2.0, Iron Level 26L, Total Iron Binding Capacity 200L, Percent Iron Saturation 13L, Unsaturated Iron Binding 174, Ferritin 558H, Total Bilirubin 1.0, Gamma Glutamyl Transpeptidase 55, Aspartate Amino Transf (AST/ SGOT) 50H, Alanine Aminotransferase (ALT/SGPT) 67, Alkaline Phosphatase 144H, Troponin I 0.143H, Pro-B-Type Natriuretic Peptide 5895H, Total Protein 7.5, Albumin 2.6L, Globulin 4.9, Albumin/Globulin Ratio 0.5L, Triglycerides Level 87 , Cholesterol Level 72, LDL Cholesterol 56, HDL Cholesterol 13L, Cholesterol/ HDL Ratio 5.5H, Vitamin B12 Level > 2000H, Folate 16.7 Height (Feet): 6 Weight (Pounds): 180 General Appearance: no apparent distress Cardiovascular: tachycardia, arrhythmia Respiratory/Chest: decreased breath sounds Abdomen: soft CRISTIANO LEVINE Apr 02, 2017 12:53
--- NOTE | 2017-04-02 14:11 | Infectious Diseases Prog Note ---
Assessment/Plan Assessment/Plan A; Sepsis/ SIRS Pneumonia Diastolic CHF Atrial fibrillation P; Continue Zosyn & Zithromax will f/u cultures Subjective ROS Limited/Unobtainable: Yes Respiratory: Reports: productive cough Allergies: Coded Allergies: HALOPERIDOL (Verified Allergy, Mild, 03/31/17) Objective Vital Signs Last 24 Hour Vital Signs Date Time Temp Pulse Resp B/P (MAP) Pulse Ox O2 Delivery O2 Flow Rate FiO2 04/02/17 12:49 91 129/72 04/02/17 12:01 98.2 91 19 129/72 96 Nasal Cannula 4.0 04/02/17 12:00 84 04/02/17 08:32 94 150/87 04/02/17 08:01 97.2 94 19 150/87 98 Room Air 04/02/17 08:00 100 04/02/17 06:15 97 153/82 04/02/17 04:00 98.2 86 20 120/71 97 Room Air 04/02/17 04:00 96 04/02/17 02:48 97 120/78 04/02/17 00:00 97.6 97 18 114/78 97 Room Air 04/02/17 00:00 83 04/01/17 20:00 83 04/01/17 20:00 98.4 90 21 127/70 96 Room Air 04/01/17 17:30 79 140/87 04/01/17 17:30 79 140/87 04/01/17 16:00 97.5 79 20 140/87 95 Nasal Cannula 4.0 04/01/17 16:00 67 Height (Feet): 6 Weight (Pounds): 180 General Appearance: no acute distress HEENT: mucous membranes moist Respiratory/Chest: other - coarse sounds Cardiovascular: normal rate Abdomen: soft, non tender Extremities: no edema Neurologic/Psychiatric: alert, responsive, other - dorwsy Microbiology Date/Time Source Procedure Growth Status 03/31/17 20:47 Blood Blood Culture - Preliminary NO GROWTH AFTER 24 HOURS Resulted 03/31/17 20:47 Blood Blood Culture - Preliminary NO GROWTH AFTER 24 HOURS Resulted Laboratory Tests Test 04/01/17 15:20 04/02/17 07:25 Urine Color Yellow Urine Appearance Clear Urine pH 6.5 (4.5-8.0) Urine Specific [place] 1.015 (1.005-1.035) Urine Protein 2+ (NEGATIVE) H Urine Glucose (UA) Negative (NEGATIVE) Urine Ketones 2+ (NEGATIVE) H Urine Occult Blood 5+ (NEGATIVE) H Urine Nitrite Negative (NEGATIVE) Urine Bilirubin Negative (NEGATIVE) Urine Urobilinogen 8 MG/DL (0.0-1.0) H Urine Leukocyte Esterase 1+ (NEGATIVE) H Urine RBC Tntc /HPF (0 - 0) H Urine WBC 2-4 /HPF (0 - 0) Urine Squamous Epithelial Cells None /LPF (NONE/OCC) Urine Bacteria Few /HPF (NONE) Urine Osmolality 870 mOsm/kg (429-449) H Urine Random Sodium 22 MEQ/L (20-110) Urine Legionella Antigen Pending White Blood Count 13.7 K/UL (4.8-10.8) H Red Blood Count 4.37 M/UL (4.70-6.10) L Hemoglobin 12.3 G/DL (14.2-18.0) L Hematocrit 37.4 % (42.0-52.0) L Mean Corpuscular Volume 85 FL (80-99) Mean Corpuscular Hemoglobin 28.2 PG (27.0-31.0) Mean Corpuscular Hemoglobin Concent 33.0 G/DL (32.0-36.0) Red Cell Distribution Width 13.6 % (11.6-14.8) Platelet Count 434 K/UL (150-450) Mean Platelet Volume 4.7 FL (6.5-10.1) L Neutrophils (%) (Auto) 84.8 % (45.0-75.0) H Lymphocytes (%) (Auto) 7.6 % (20.0-45.0) L Monocytes (%) (Auto) 7.0 % (1.0-10.0) Eosinophils (%) (Auto) 0.0 % (0.0-3.0) Basophils (%) (Auto) 0.6 % (0.0-2.0) Sodium Level 131 MMOL/L (136-145) L Potassium Level 3.6 MMOL/L (3.5-5.1) Chloride Level 96 MMOL/L (98-107) L Carbon Dioxide Level 27 MMOL/L (21-32) Anion Gap 8 mmol/L (5-15) Blood Urea Nitrogen 16 mg/dL (7-18) Creatinine 0.6 MG/DL (0.55-1.30) Estimat Glomerular Filtration Rate > 60 mL/min (>60) Glucose Level 122 MG/DL (74-106) H Osmolality 281 mOsm/kg (297-317) L Uric Acid 2.1 MG/DL (2.6-7.2) L Calcium Level 9.0 MG/DL (8.5-10.1) Phosphorus Level 3.1 MG/DL (2.5-4.9) Magnesium Level 2.0 MG/DL (1.8-2.4) Iron Level 26 ug/dL (50-175) L Total Iron Binding Capacity 200 ug/dL (250-450) L Percent Iron Saturation 13 % (15-50) L Unsaturated Iron Binding 174 ug/dL (112-346) Ferritin 558 NG/ML (8-388) H Total Bilirubin 1.0 MG/DL (0.2-1.0) Gamma Glutamyl Transpeptidase 55 U/L (5-85) Aspartate Amino Transf (AST/SGOT) 50 U/L (15-37) H Alanine Aminotransferase (ALT/SGPT) 67 U/L (12-78) Alkaline Phosphatase 144 U/L (46-116) H Troponin I 0.143 ng/mL (0.000-0.056) Pro-B-Type Natriuretic Peptide 5895 pg/mL (0-125) H Total Protein 7.5 G/DL (6.4-8.2) Albumin 2.6 G/DL (3.4-5.0) L Globulin 4.9 g/dL Albumin/Globulin Ratio 0.5 (1.0-2.7) L Triglycerides Level 87 MG/DL (30-150) Cholesterol Level 72 MG/DL (< 200) LDL Cholesterol 56 mg/dL (<100) HDL Cholesterol 13 MG/DL (40-60) L Cholesterol/HDL Ratio 5.5 (3.3-4.4) H Vitamin B12 Level > 2000 PG/ML (193-986) H Folate 16.7 NG/ML (8.6-58.9) Current Medications Medications (Trade) Dose Ordered Sig/Jeff Route PRN Reason Start Time Stop Time Status Last Admin Dose Admin Acetaminophen (Tylenol) 650 mg Q4H PRN ORAL Mild Pain/Temp > 100.5 03/31/17 23:45 04/30/17 23:44 Aspirin (Ecotrin) 81 mg DAILY ORAL 04/02/17 09:00 05/02/17 08:59 04/02/17 08:32 Atorvastatin Calcium (Lipitor) 10 mg BEDTIME ORAL 04/01/17 21:00 05/01/17 20:59 04/01/17 21:33 Azithromycin (Zithromax) 250 mg DAILY ORAL 04/01/17 13:00 04/08/17 12:59 04/02/17 08:33 Clonidine HCl (Catapres Tab) 0.1 mg Q4H PRN ORAL For High Blood Pressure 04/01/17 00:15 05/01/17 00:14 Diltiazem HCl (Cardizem) 60 mg EVERY 8 HOURS ORAL 04/02/17 14:00 05/01/17 08:59 Docusate Sodium (Colace) 100 mg TID ORAL 04/01/17 18:00 05/01/17 08:59 04/02/17 12:49 Enoxaparin Sodium (Lovenox) 80 mg EVERY 12 HOURS SUBQ 04/01/17 11:30 05/01/17 11:29 04/02/17 08:35 Furosemide (Lasix) 40 mg DAILY IV 04/02/17 09:00 05/02/17 08:59 04/02/17 08:39 Iron Sucrose 200 mg/Sodium Chloride 120 ml @ 240 mls/hr ONCE ONCE IV 04/02/17 15:00 04/02/17 15:29 Metoprolol Succinate (Toprol XL) 50 mg BID ORAL 04/01/17 09:00 05/01/17 08:59 04/02/17 08:32 Olanzapine (ZyPREXA) 10 mg DAILY ORAL 04/01/17 09:00 05/01/17 08:59 04/02/17 08:32 Pantoprazole (Protonix) 40 mg DAILY ORAL 04/01/17 09:00 05/01/17 08:59 04/02/17 08:32 Piperacillin Sod/ Tazobactam Sod 3.375 gm/Sodium Chloride 110 ml @ 27.5 mls/hr EVERY 8 HOURS IVPB 04/01/17 14:00 04/06/17 13:59 04/02/17 13:36 Risperidone (RisperDAL) 1 mg Q6H PRN ORAL Agitation 04/01/17 15:45 05/01/17 15:44 Risperidone (RisperDAL) 2 mg QHS ORAL 04/01/17 21:00 05/01/17 20:59 04/01/17 21:33 Tamsulosin HCl (Flomax) 0.4 mg BEDTIME ORAL 04/01/17 21:00 05/01/17 20:59 04/01/17 21:33 Temazepam (Restoril) 30 mg HSPRN PRN ORAL Insomnia 03/31/17 23:45 04/07/17 23:44 ADRI PIKE Apr 02, 2017 14:11
[2017-04-02] MEDS ORDERED: Iron Sucrose 200 MG in NS 110 ML IV ONE (15:00)
[2017-04-02 16:00] VITALS: BP 140/81
[2017-04-02 20:00] VITALS: BP 159/80
[2017-04-02] MEDS: Tamsulosin 0.4mg cap ORAL SCH (20:48)
--- NOTE | 2017-04-02 22:46 | General Progress Note ---
Assessment/Plan Problem List: (1) Shortness of breath ICD Codes: R06.02 - Shortness of breath SNOMED: 066092889 (2) PNA (pneumonia) ICD Codes: J18.9 - Pneumonia, unspecified organism SNOMED: 758866763 Status: progressing Assessment/Plan sob pna afebrile no wheezing abx per id reviewed chart and labs Subjective ROS Limited/Unobtainable: Yes Allergies: Coded Allergies: HALOPERIDOL (Verified Allergy, Mild, 03/31/17) Objective Last 24 Hour Vital Signs Date Time Temp Pulse Resp B/P (MAP) Pulse Ox O2 Delivery O2 Flow Rate FiO2 04/02/17 22:10 88 149/79 04/02/17 20:00 97 04/02/17 20:00 98.1 90 20 159/80 90 04/02/17 17:26 94 140/81 04/02/17 16:00 77 04/02/17 16:00 98.9 94 18 140/81 97 Nasal Cannula 4.0 04/02/17 14:20 91 129/72 04/02/17 12:49 91 129/72 04/02/17 12:01 98.2 91 19 129/72 96 Nasal Cannula 4.0 04/02/17 12:00 84 04/02/17 08:32 94 150/87 04/02/17 08:01 97.2 94 19 150/87 98 Room Air 04/02/17 08:00 100 04/02/17 06:15 97 153/82 04/02/17 04:00 98.2 86 20 120/71 97 Room Air 04/02/17 04:00 96 04/02/17 02:48 97 120/78 04/02/17 00:00 97.6 97 18 114/78 97 Room Air 04/02/17 00:00 83 Intake and Output 04/01/17 04/02/17 19:00 07:00 Intake Total 750.0 ml Output Total 450 ml 400 ml Balance 300.0 ml -400 ml Intake Oral 640 ml IV Total 110.0 ml Output Urine Total 450 ml 400 ml # Voids 2 # Bowel Movements 1 1 Laboratory Tests 04/02/17 07:25: White Blood Count 13.7H, Red Blood Count 4.37L, Hemoglobin 12.3L, Hematocrit 37.4L, Mean Corpuscular Volume 85, Mean Corpuscular Hemoglobin 28.2, Mean Corpuscular Hemoglobin Concent 33.0, Red Cell Distribution Width 13.6, Platelet Count 434, Mean Platelet Volume 4.7L, Neutrophils (%) (Auto) 84.8H, Lymphocytes (%) (Auto) 7.6L, Monocytes (%) (Auto) 7.0, Eosinophils (%) (Auto) 0.0, Basophils (%) (Auto) 0.6, Sodium Level 131L, Potassium Level 3.6, Chloride Level 96L, Carbon Dioxide Level 27, Anion Gap 8, Blood Urea Nitrogen 16, Creatinine 0.6, Estimat Glomerular Filtration Rate > 60, Glucose Level 122H, Osmolality 281L, Uric Acid 2.1L, Calcium Level 9.0, Phosphorus Level 3.1, Magnesium Level 2.0, Iron Level 26L, Total Iron Binding Capacity 200L, Percent Iron Saturation 13L, Unsaturated Iron Binding 174, Ferritin 558H, Total Bilirubin 1.0, Gamma Glutamyl Transpeptidase 55, Aspartate Amino Transf (AST/ SGOT) 50H, Alanine Aminotransferase (ALT/SGPT) 67, Alkaline Phosphatase 144H, Troponin I 0.143H, Pro-B-Type Natriuretic Peptide 5895H, Total Protein 7.5, Albumin 2.6L, Globulin 4.9, Albumin/Globulin Ratio 0.5L, Triglycerides Level 87 , Cholesterol Level 72, LDL Cholesterol 56, HDL Cholesterol 13L, Cholesterol/ HDL Ratio 5.5H, Vitamin B12 Level > 2000H, Folate 16.7 Height (Feet): 6 Weight (Pounds): 180 General Appearance: confused Abdomen: non tender Michel Connelly MD Apr 02, 2017 22:46
[2017-04-03] VITALS: BP 129/68
[2017-04-03 04:00] VITALS: BP 143/86
[2017-04-03] MEDS: dilTIAZem HCl 30mg tab ORAL SCH ×3 (06:07→22:06)
[2017-04-03] MEDS: Piperacillin/Tazobactam 3.375 GM in NS 110 ML IVPB SCH ×3 (06:07→22:06)
[2017-04-03 08:03] VITALS: BP 133/70
[2017-04-03] MEDS: Docusate 100mg cap ORAL SCH ×3 (08:15→17:49)
[2017-04-03] MEDS: Metoprolol Succinate XL 50mg tab ORAL SCH ×2 (08:15→17:49)
[2017-04-03] MEDS: Azithromycin 250mg tab ORAL SCH (08:16)
[2017-04-03] MEDS: Aspirin EC 81mg tab ORAL SCH (08:16)
[2017-04-03] MEDS: Enoxaparin 80mg Inj SUBQ SCH ×2 (08:17→21:07)
--- NOTE | 2017-04-03 10:04 | Nephrology Progress Note ---
Assessment/Plan Problem List: (1) Hypertension, uncontrolled (2) Hyponatremia (3) Anemia Assessment admitted with Pneumonia HTN OOC At fib Low Na likely psychogenic po water intake mild anemia Low Alb High A1c Plan Plan: no labs today PO fluid restriction Medium CHO diet Cardiazem , Lopressor and PRN Clonidine Per cardio one dose Venofer Echo 65% Ej Fx Subjective ROS Limited/Unobtainable: No Constitutional: Reports: malaise Objective Objective Last 24 Hour Vital Signs Date Time Temp Pulse Resp B/P (MAP) Pulse Ox O2 Delivery O2 Flow Rate FiO2 04/03/17 08:15 93 133/70 04/03/17 08:03 98.9 93 19 133/70 95 Nasal Cannula 04/03/17 06:07 88 147/74 04/03/17 04:00 85 04/03/17 04:00 97.7 74 18 143/86 94 Nasal Cannula 04/03/17 00:00 87 04/03/17 00:00 98.2 91 18 129/68 90 Nasal Cannula 4.0 04/02/17 22:10 88 149/79 04/02/17 20:00 97 04/02/17 20:00 98.1 90 20 159/80 90 04/02/17 17:26 94 140/81 04/02/17 16:00 77 04/02/17 16:00 98.9 94 18 140/81 97 Nasal Cannula 4.0 04/02/17 14:20 91 129/72 04/02/17 12:49 91 129/72 04/02/17 12:01 98.2 91 19 129/72 96 Nasal Cannula 4.0 04/02/17 12:00 84 Intake and Output 04/02/17 04/03/17 19:00 07:00 Intake Total 820.0 ml Output Total 600 ml Balance 220.0 ml Intake Oral 600 ml IV Total 220.0 ml Output Urine Total 600 ml # Voids 1 4 # Bowel Movements 1 1 Height (Feet): 6 Weight (Pounds): 154 General Appearance: no apparent distress Cardiovascular: tachycardia, arrhythmia Respiratory/Chest: lungs clear Abdomen: soft Objective no change CRISTIANO LEVINE Apr 03, 2017 10:04
--- NOTE | 2017-04-03 10:44 | Infectious Diseases Prog Note ---
Assessment/Plan Assessment/Plan antibiotics : zosyn, azithromycin A 1. pneumonia 2. CHF 3. atrial fibrillation 4. leucocytosis improving P 1. continue zosyn, azithromycin 2. will follow up cultures Subjective ROS Limited/Unobtainable: Yes Allergies: Coded Allergies: HALOPERIDOL (Verified Allergy, Mild, 03/31/17) Objective Vital Signs Last 24 Hour Vital Signs Date Time Temp Pulse Resp B/P (MAP) Pulse Ox O2 Delivery O2 Flow Rate FiO2 04/03/17 08:15 93 133/70 04/03/17 08:03 98.9 93 19 133/70 95 Nasal Cannula 04/03/17 06:07 88 147/74 04/03/17 04:00 85 04/03/17 04:00 97.7 74 18 143/86 94 Nasal Cannula 04/03/17 00:00 87 04/03/17 00:00 98.2 91 18 129/68 90 Nasal Cannula 4.0 04/02/17 22:10 88 149/79 04/02/17 20:00 97 04/02/17 20:00 98.1 90 20 159/80 90 04/02/17 17:26 94 140/81 04/02/17 16:00 77 04/02/17 16:00 98.9 94 18 140/81 97 Nasal Cannula 4.0 04/02/17 14:20 91 129/72 04/02/17 12:49 91 129/72 04/02/17 12:01 98.2 91 19 129/72 96 Nasal Cannula 4.0 04/02/17 12:00 84 Height (Feet): 6 Weight (Pounds): 154 Respiratory/Chest: lungs clear Cardiovascular: normal rate, regular rhythm, no gallop/murmur Abdomen: soft, non tender Extremities: no edema Microbiology Date/Time Source Procedure Growth Status 03/31/17 20:47 Blood Blood Culture - Preliminary NO GROWTH AFTER 24 HOURS Resulted 03/31/17 20:47 Blood Blood Culture - Preliminary NO GROWTH AFTER 24 HOURS Resulted 03/31/17 23:25 Nasal Nares MRSA Culture - Final NO METHICILLIN RESISTANT STAPH AUREUS... Complete 03/31/17 23:25 Rectum VRE Culture - Final Enterococcus Faecium - Vre Complete WICHO GROSS Apr 03, 2017 10:44
[2017-04-03 12:00] VITALS: BP 117/74
--- NOTE | 2017-04-03 15:08 | Cardiac Electrophysiology PN ---
Assessment/Plan Assessment/Plan 1. Troponin elevation. The troponins are only marginally elevated and levels are coming down. The patient does not have any chest pain.Could be due to atrial fibrillation with rapid ventricular response. Continue metoprolol 50 mg, Lipitor 10 mg daily, and aspirin 81 mg daily. Stress test after PNA is resolved. 2. Atrial fibrillation with RVR. On metoprolol 50 mg b.i.d.,Cardizem 30 mg every six hours and Lovenox 80 sq bid 3. CHF due to diastolic dysfunction with BNP more than 8000.HFpEF EF 65%.On Lasix 40 iv daily 3. Hyperlipidemia, on Lipitor. 4. Schizophrenia, on Zyprexa. 5. Pneumonia, on antibiotics. DW RN Subjective Subjective Still in atrial fib with controlled rate. No events overnight. RN at bedside. Objective Last 24 Hour Vital Signs Date Time Temp Pulse Resp B/P (MAP) Pulse Ox O2 Delivery O2 Flow Rate FiO2 04/03/17 13:20 76 117/74 04/03/17 12:00 98.9 80 19 117/74 98 Nasal Cannula 04/03/17 12:00 76 04/03/17 08:15 93 133/70 04/03/17 08:03 98.9 93 19 133/70 95 Nasal Cannula 04/03/17 08:00 88 04/03/17 06:07 88 147/74 04/03/17 04:00 85 04/03/17 04:00 97.7 74 18 143/86 94 Nasal Cannula 04/03/17 00:00 87 04/03/17 00:00 98.2 91 18 129/68 90 Nasal Cannula 4.0 04/02/17 22:10 88 149/79 04/02/17 20:00 97 04/02/17 20:00 98.1 90 20 159/80 90 04/02/17 17:26 94 140/81 04/02/17 16:00 77 04/02/17 16:00 98.9 94 18 140/81 97 Nasal Cannula 4.0 Intake and Output 04/02/17 04/03/17 19:00 07:00 Intake Total 820.0 ml Output Total 600 ml Balance 220.0 ml Intake Oral 600 ml IV Total 220.0 ml Output Urine Total 600 ml # Voids 1 4 # Bowel Movements 1 1 Microbiology Date/Time Source Procedure Growth Status 03/31/17 20:47 Blood Blood Culture - Preliminary NO GROWTH AFTER 48 HOURS Resulted 03/31/17 20:47 Blood Blood Culture - Preliminary NO GROWTH AFTER 48 HOURS Resulted 03/31/17 23:25 Nasal Nares MRSA Culture - Final NO METHICILLIN RESISTANT STAPH AUREUS... Complete 03/31/17 23:25 Rectum VRE Culture - Final Enterococcus Faecium - Vre Complete Objective HEAD AND NECK: No JVD. LUNGS: Coarse rhonchi bilaterally. CARDIOVASCULAR: Irregular S1-S2 with no gallop or murmur. ABDOMEN: Soft. EXTREMITIES: No pitting edema. DORINDA WEN Apr 03, 2017 15:08
[2017-04-03 15:51] VITALS: BP 126/86
--- NOTE | 2017-04-03 17:00 | Progress Note ---
DATE: 04/02/2017 SUBJECTIVE: The patient was in bed, in no acute distress. Continues to be confused. He has poor insight and judgment into his mental condition. The patient continues to have low sodium and he has been confused. He has waxing and waning consciousness and episodes of agitation. MENTAL STATUS EXAMINATION: The patient is alert and oriented times self. Mood is neutral during the evaluation. Per nurse, the patient has been anxious. Affect is constricted, congruent with mood. Thought process, there is a paucity of thought content. Thought content, no suicidal or homicidal ideations. ASSESSMENT: Agitation. PLAN: 1. We will continue with the current medications. 2. We will continue to follow and readjust the medications. Jag Chappell M.D. DR: José Luis JOB#: [id number] CC:
[2017-04-03 20:00] VITALS: BP 140/84
--- NOTE | 2017-04-03 20:07 | General Progress Note ---
Assessment/Plan Problem List: (1) Shortness of breath ICD Codes: R06.02 - Shortness of breath SNOMED: 864800868 (2) PNA (pneumonia) ICD Codes: J18.9 - Pneumonia, unspecified organism SNOMED: 215997511 Status: progressing Assessment/Plan pna improving no acute events sepsis improving not hypoxic Subjective ROS Limited/Unobtainable: Yes Allergies: Coded Allergies: HALOPERIDOL (Verified Allergy, Mild, 03/31/17) Objective Last 24 Hour Vital Signs Date Time Temp Pulse Resp B/P (MAP) Pulse Ox O2 Delivery O2 Flow Rate FiO2 04/03/17 20:01 101.7 04/03/17 20:00 101.7 90 20 140/84 94 04/03/17 17:49 87 126/86 04/03/17 16:00 87 04/03/17 15:51 98.6 86 20 126/86 98 Nasal Cannula 04/03/17 13:20 76 117/74 04/03/17 12:00 98.9 80 19 117/74 98 Nasal Cannula 04/03/17 12:00 76 04/03/17 08:15 93 133/70 04/03/17 08:03 98.9 93 19 133/70 95 Nasal Cannula 04/03/17 08:00 88 04/03/17 06:07 88 147/74 04/03/17 04:00 85 04/03/17 04:00 97.7 74 18 143/86 94 Nasal Cannula 04/03/17 00:00 87 04/03/17 00:00 98.2 91 18 129/68 90 Nasal Cannula 4.0 04/02/17 22:10 88 149/79 Intake and Output 04/02/17 04/03/17 19:00 07:00 Intake Total 820.0 ml Output Total 600 ml Balance 220.0 ml Intake Oral 600 ml IV Total 220.0 ml Output Urine Total 600 ml # Voids 1 4 # Bowel Movements 1 1 Height (Feet): 6 Weight (Pounds): 154 Cardiovascular: normal rate Respiratory/Chest: lungs clear Abdomen: soft Michel Connelly MD Apr 03, 2017 20:07
[2017-04-03] MEDS: Tamsulosin 0.4mg cap ORAL SCH (21:08)
[2017-04-04] VITALS: BP 130/75
[2017-04-04 03:00] VITALS: BP 134/69
[2017-04-04] MEDS: Piperacillin/Tazobactam 3.375 GM in NS 110 ML IVPB SCH ×3 (06:00→21:43)
[2017-04-04] MEDS: dilTIAZem HCl 30mg tab ORAL SCH ×3 (06:01→21:41)
[2017-04-04 08:00] VITALS: BP 130/79
[2017-04-04] MEDS: Enoxaparin 80mg Inj SUBQ SCH ×2 (09:14→21:42)
[2017-04-04] MEDS: Aspirin EC 81mg tab ORAL SCH (09:14)
[2017-04-04] MEDS: Metoprolol Succinate XL 50mg tab ORAL SCH ×2 (09:15→17:17)
[2017-04-04] MEDS: Azithromycin 250mg tab ORAL SCH (09:15)
[2017-04-04] MEDS: Docusate 100mg cap ORAL SCH ×3 (09:16→17:17)
--- NOTE | 2017-04-04 10:08 | General Progress Note ---
Assessment/Plan Problem List: (1) Shortness of breath ICD Codes: R06.02 - Shortness of breath SNOMED: 447764243 (2) PNA (pneumonia) ICD Codes: J18.9 - Pneumonia, unspecified organism SNOMED: 841507938 Status: progressing Assessment/Plan pna improving sepsis improving leukocytosis improving hyponatremia low k elevated bnp afebrile psych Subjective ROS Limited/Unobtainable: Yes Allergies: Coded Allergies: HALOPERIDOL (Verified Allergy, Mild, 03/31/17) Objective Last 24 Hour Vital Signs Date Time Temp Pulse Resp B/P (MAP) Pulse Ox O2 Delivery O2 Flow Rate FiO2 04/04/17 09:15 82 130/79 04/04/17 08:00 97.0 82 19 130/79 96 Nasal Cannula 4.0 04/04/17 06:01 88 144/83 04/04/17 04:00 74 04/04/17 03:00 97.4 83 20 134/69 99 Nasal Cannula 4.0 04/04/17 00:00 66 04/04/17 00:00 97.9 70 20 130/75 97 Nasal Cannula 4.0 04/03/17 23:21 98.8 04/03/17 22:06 80 142/87 04/03/17 21:05 98.8 04/03/17 20:01 101.7 04/03/17 20:00 75 04/03/17 20:00 101.7 90 20 140/84 94 04/03/17 20:00 Nasal Cannula 4.0 04/03/17 17:49 87 126/86 04/03/17 16:00 87 04/03/17 15:51 98.6 86 20 126/86 98 Nasal Cannula 04/03/17 13:20 76 117/74 04/03/17 12:00 98.9 80 19 117/74 98 Nasal Cannula 04/03/17 12:00 76 Intake and Output 04/03/17 04/04/17 19:00 07:00 Intake Total 700.0 ml 162.3 ml Balance 700.0 ml 162.3 ml Intake Oral 590 ml IV Total 110.0 ml 162.3 ml # Voids 5 2 # Bowel Movements 1 Height (Feet): 6 Weight (Pounds): 166 Respiratory/Chest: lungs clear Abdomen: non tender Michel Connelly MD Apr 04, 2017 10:08
--- NOTE | 2017-04-04 10:11 | Infectious Diseases Prog Note ---
Assessment/Plan Assessment/Plan A; Fever Sepsis/ SIRS Pneumonia Diastolic CHF Atrial fibrillation P; Continue Zosyn & Zithromax repeat CXR, UA, UC Subjective ROS Limited/Unobtainable: Yes Constitutional: Reports: fever, other - Bvpv=333.7 Allergies: Coded Allergies: HALOPERIDOL (Verified Allergy, Mild, 03/31/17) Objective Vital Signs Last 24 Hour Vital Signs Date Time Temp Pulse Resp B/P (MAP) Pulse Ox O2 Delivery O2 Flow Rate FiO2 04/04/17 09:15 82 130/79 04/04/17 08:00 97.0 82 19 130/79 96 Nasal Cannula 4.0 04/04/17 06:01 88 144/83 04/04/17 04:00 74 04/04/17 03:00 97.4 83 20 134/69 99 Nasal Cannula 4.0 04/04/17 00:00 66 04/04/17 00:00 97.9 70 20 130/75 97 Nasal Cannula 4.0 04/03/17 23:21 98.8 04/03/17 22:06 80 142/87 04/03/17 21:05 98.8 04/03/17 20:01 101.7 04/03/17 20:00 75 04/03/17 20:00 101.7 90 20 140/84 94 04/03/17 20:00 Nasal Cannula 4.0 04/03/17 17:49 87 126/86 04/03/17 16:00 87 04/03/17 15:51 98.6 86 20 126/86 98 Nasal Cannula 04/03/17 13:20 76 117/74 04/03/17 12:00 98.9 80 19 117/74 98 Nasal Cannula 04/03/17 12:00 76 Height (Feet): 6 Weight (Pounds): 166 General Appearance: no acute distress HEENT: mucous membranes moist Respiratory/Chest: lungs clear Cardiovascular: normal rate Abdomen: soft, non tender Extremities: no edema Neurologic/Psychiatric: disoriented, other - drowsy Current Medications Medications (Trade) Dose Ordered Sig/Jeff Route PRN Reason Start Time Stop Time Status Last Admin Dose Admin Acetaminophen (Tylenol) 650 mg Q4H PRN ORAL Mild Pain/Temp > 100.5 03/31/17 23:45 04/30/17 23:44 04/03/17 20:01 Aspirin (Ecotrin) 81 mg DAILY ORAL 04/02/17 09:00 05/02/17 08:59 04/04/17 09:14 Atorvastatin Calcium (Lipitor) 10 mg BEDTIME ORAL 04/01/17 21:00 05/01/17 20:59 04/03/17 21:08 Azithromycin (Zithromax) 250 mg DAILY ORAL 04/01/17 13:00 04/08/17 12:59 04/04/17 09:15 Clonidine HCl (Catapres Tab) 0.1 mg Q4H PRN ORAL For High Blood Pressure 04/01/17 00:15 05/01/17 00:14 Diltiazem HCl (Cardizem) 60 mg EVERY 8 HOURS ORAL 04/02/17 14:00 05/01/17 08:59 04/04/17 06:01 Docusate Sodium (Colace) 100 mg TID ORAL 04/01/17 18:00 05/01/17 08:59 04/04/17 09:16 Enoxaparin Sodium (Lovenox) 80 mg EVERY 12 HOURS SUBQ 04/01/17 11:30 05/01/17 11:29 04/04/17 09:14 Furosemide (Lasix) 40 mg DAILY IV 04/02/17 09:00 05/02/17 08:59 04/04/17 09:14 Metoprolol Succinate (Toprol XL) 50 mg BID ORAL 04/01/17 09:00 05/01/17 08:59 04/04/17 09:15 Olanzapine (ZyPREXA) 10 mg DAILY ORAL 04/01/17 09:00 05/01/17 08:59 04/04/17 09:15 Pantoprazole (Protonix) 40 mg DAILY ORAL 04/01/17 09:00 05/01/17 08:59 04/04/17 09:15 Piperacillin Sod/ Tazobactam Sod 3.375 gm/Sodium Chloride 110 ml @ 27.5 mls/hr EVERY 8 HOURS IVPB 04/01/17 14:00 04/06/17 13:59 04/04/17 06:00 Potassium Chloride (K-Dur) 40 meq DAILY ORAL 04/03/17 11:00 05/03/17 10:59 04/04/17 09:15 Risperidone (RisperDAL) 1 mg Q6H PRN ORAL Agitation 04/01/17 15:45 05/01/17 15:44 04/03/17 01:37 Risperidone (RisperDAL) 2 mg QHS ORAL 04/01/17 21:00 05/01/17 20:59 04/03/17 21:08 Tamsulosin HCl (Flomax) 0.4 mg BEDTIME ORAL 04/01/17 21:00 05/01/17 20:59 04/03/17 21:08 Temazepam (Restoril) 30 mg HSPRN PRN ORAL Insomnia 03/31/17 23:45 04/07/17 23:44 04/03/17 01:37 ADRI PIKE Apr 04, 2017 10:11
--- NOTE | 2017-04-04 11:40 | Nephrology Progress Note ---
Assessment/Plan Problem List: (1) Hypertension, uncontrolled (2) Hyponatremia (3) Anemia Assessment admitted with Pneumonia HTN OOC At fib Low Na likely psychogenic po water intake mild anemia Low Alb High A1c Plan Plan: no labs today PO fluid restriction Medium CHO diet Cardiazem , Lopressor and PRN Clonidine Per cardio one dose Venofer Echo 65% Ej Fx Subjective ROS Limited/Unobtainable: No Constitutional: Reports: malaise Objective Objective Last 24 Hour Vital Signs Date Time Temp Pulse Resp B/P (MAP) Pulse Ox O2 Delivery O2 Flow Rate FiO2 04/04/17 09:15 82 130/79 04/04/17 08:00 97.0 82 19 130/79 96 Nasal Cannula 4.0 04/04/17 08:00 82 04/04/17 06:01 88 144/83 04/04/17 04:00 74 04/04/17 03:00 97.4 83 20 134/69 99 Nasal Cannula 4.0 04/04/17 00:00 66 04/04/17 00:00 97.9 70 20 130/75 97 Nasal Cannula 4.0 04/03/17 23:21 98.8 04/03/17 22:06 80 142/87 04/03/17 21:05 98.8 04/03/17 20:01 101.7 04/03/17 20:00 75 04/03/17 20:00 101.7 90 20 140/84 94 04/03/17 20:00 Nasal Cannula 4.0 04/03/17 17:49 87 126/86 04/03/17 16:00 87 04/03/17 15:51 98.6 86 20 126/86 98 Nasal Cannula 04/03/17 13:20 76 117/74 04/03/17 12:00 98.9 80 19 117/74 98 Nasal Cannula 04/03/17 12:00 76 Intake and Output 04/03/17 04/04/17 19:00 07:00 Intake Total 700.0 ml 162.3 ml Balance 700.0 ml 162.3 ml Intake Oral 590 ml IV Total 110.0 ml 162.3 ml # Voids 5 2 # Bowel Movements 1 Height (Feet): 6 Weight (Pounds): 166 General Appearance: no apparent distress Cardiovascular: normal rate, arrhythmia Respiratory/Chest: decreased breath sounds Abdomen: soft Objective no change CRISTIANO LEVINEb 18, 2018 11:40
[2017-04-04 12:00] VITALS: BP 125/81
[2017-04-04 16:00] VITALS: BP 149/80
[2017-04-04 20:00] VITALS: BP 144/82
[2017-04-04] MEDS: Tamsulosin 0.4mg cap ORAL SCH (21:34)
--- NOTE | 2017-04-04 22:17 | General Progress Note ---
Assessment/Plan Status: stable, progressing Subjective Date patient seen: Apr 04, 2017 Neurologic/Psychiatric: Reports: anxiety, emotional problems Allergies: Coded Allergies: HALOPERIDOL (Verified Allergy, Mild, 03/31/17) Objective Last 24 Hour Vital Signs Date Time Temp Pulse Resp B/P (MAP) Pulse Ox O2 Delivery O2 Flow Rate FiO2 04/04/17 21:41 96 165/101 04/04/17 20:00 97.5 89 20 144/82 97 Nasal Cannula 4.0 04/04/17 17:17 65 149/80 04/04/17 16:00 78 04/04/17 16:00 97.1 65 20 149/80 98 Nasal Cannula 4.0 04/04/17 13:09 71 125/81 04/04/17 12:00 97.1 71 19 125/81 96 Nasal Cannula 4.0 04/04/17 12:00 79 04/04/17 09:15 82 130/79 04/04/17 08:00 97.0 82 19 130/79 96 Nasal Cannula 4.0 04/04/17 08:00 82 04/04/17 06:01 88 144/83 04/04/17 04:00 74 04/04/17 03:00 97.4 83 20 134/69 99 Nasal Cannula 4.0 04/04/17 00:00 66 04/04/17 00:00 97.9 70 20 130/75 97 Nasal Cannula 4.0 04/03/17 23:21 98.8 Intake and Output 04/03/17 04/04/17 19:00 07:00 Intake Total 700.0 ml 162.3 ml Balance 700.0 ml 162.3 ml Intake Oral 590 ml IV Total 110.0 ml 162.3 ml # Voids 5 2 # Bowel Movements 1 Laboratory Tests 04/04/17 12:10: C-Reactive Protein, Quantitative 12.9H Height (Feet): 6 Weight (Pounds): 159 General Appearance: no apparent distress, alert, confused, agitated Jag Chappell M.D. Apr 04, 2017 22:17
[2017-04-05] VITALS: BP 140/81
[2017-04-05 04:00] VITALS: BP 139/77
[2017-04-05] MEDS: dilTIAZem HCl 30mg tab ORAL SCH ×2 (05:49→14:01)
[2017-04-05] MEDS: Piperacillin/Tazobactam 3.375 GM in NS 110 ML IVPB SCH (05:49)
[2017-04-05 07:31] LABS: APPEARANCE,URINE CLOUDY; BILIRUBIN, URINE NEGATIVE (NEGATIVE); GLUCOSE, URINE (UA) NEGATIVE (NEGATIVE); KETONES,URINE NEGATIVE (NEGATIVE); LEUKOCYTE ESTERASE ,URINE NEGATIVE (NEGATIVE); NITRITE,URINE NEGATIVE (NEGATIVE); PH,URINE 6 (4.5-8.0); PROTEIN,URINE 1+ (NEGATIVE); UROBILINOGEN,URINE 1 MG/DL (0.0-1.0)
[2017-04-05 07:39] LABS: BASOPHILS % (AUTO) 0.6 % (0.0-2.0); EOSINOPHILS % (AUTO) 1.3 % (0.0-3.0); HEMATOCRIT 40.4 % (42.0-52.0); HEMOGLOBIN 13.6 G/DL (14.2-18.0); LYMPHOCYTES % (AUTO) 16.2 % (20.0-45.0); MEAN CORPUSCULAR VOLUME 86 FL (80-99); MONOCYTES % (AUTO) 11.2 % (1.0-10.0); NEUTROPHILS % (AUTO) 70.8 % (45.0-75.0); PLATELET COUNT 434 K/UL (150-450); RED BLOOD COUNT 4.73 M/UL (4.70-6.10); RED CELL DISTRIBUTION WIDTH 13.9 % (11.6-14.8); WHITE BLOOD COUNT 10.3 K/UL (4.8-10.8)
[2017-04-05 07:47] VITALS: BP 141/81
[2017-04-05 07:50] LABS: COLOR,URINE YELLOW
[2017-04-05 08:03] LABS: ALANINE AMINOTRANSFERASE 53 U/L (12-78); ALBUMIN 2.4 G/DL (3.4-5.0); ALBUMIN/GLOBULIN RATIO 0.5 (1.0-2.7); ALKALINE PHOSPHATASE 120 U/L (46-116); ANION GAP 9 mmol/L (5-15); ASPARTATE AMINO TRANSFERASE 30 U/L (15-37); BILIRUBIN,TOTAL 0.7 MG/DL (0.2-1.0); BLOOD UREA NITROGEN 21 mg/dL (7-18); CALCIUM 9.1 MG/DL (8.5-10.1); CARBON DIOXIDE 28 MMOL/L (21-32); CHLORIDE 97 MMOL/L (98-107); CREATININE 0.6 MG/DL (0.55-1.30); PHOSPHORUS 3.1 MG/DL (2.5-4.9); POTASSIUM 3.2 MMOL/L (3.5-5.1); SODIUM 134 MMOL/L (136-145)
[2017-04-05] MEDS: Metoprolol Succinate XL 50mg tab ORAL SCH (08:04)
[2017-04-05] MEDS: Aspirin EC 81mg tab ORAL SCH (08:04)
[2017-04-05] MEDS: Azithromycin 250mg tab ORAL SCH (08:04)
[2017-04-05] MEDS: Docusate 100mg cap ORAL SCH ×2 (08:04→14:01)
[2017-04-05] MEDS: Enoxaparin 80mg Inj SUBQ SCH (08:10)
--- NOTE | 2017-04-05 10:30 | Infectious Diseases Prog Note ---
Assessment/Plan Assessment/Plan A; Fever resolved Sepsis/ SIRS Pneumonia Diastolic CHF Atrial fibrillation VRE colonization P; discontinue Zosyn & Zithromax PO Levaquin X 2 days Agree with discharge Subjective ROS Limited/Unobtainable: Yes Constitutional: Reports: other - afebrile in last 24 hour Respiratory: Reports: shortness of breath, productive cough Allergies: Coded Allergies: HALOPERIDOL (Verified Allergy, Mild, 03/31/17) Objective Vital Signs Last 24 Hour Vital Signs Date Time Temp Pulse Resp B/P (MAP) Pulse Ox O2 Delivery O2 Flow Rate FiO2 04/05/17 08:04 79 141/81 04/05/17 08:00 89 04/05/17 07:47 97.0 79 20 141/81 95 Nasal Cannula 4.0 04/05/17 05:49 92 135/82 04/05/17 04:00 97.8 100 18 139/77 94 Nasal Cannula 4.0 04/05/17 04:00 88 04/05/17 00:00 98.4 77 20 140/81 96 Nasal Cannula 4.0 04/05/17 00:00 85 04/04/17 21:41 96 165/101 04/04/17 20:00 80 04/04/17 20:00 97.5 89 20 144/82 97 Nasal Cannula 4.0 04/04/17 17:17 65 149/80 04/04/17 16:00 78 04/04/17 16:00 97.1 65 20 149/80 98 Nasal Cannula 4.0 04/04/17 13:09 71 125/81 04/04/17 12:00 97.1 71 19 125/81 96 Nasal Cannula 4.0 04/04/17 12:00 79 Height (Feet): 6 Weight (Pounds): 155 General Appearance: no acute distress HEENT: mucous membranes moist Respiratory/Chest: lungs clear Cardiovascular: normal rate Abdomen: soft, non tender Extremities: no edema Neurologic/Psychiatric: alert, responsive Laboratory Tests Test 04/04/17 12:10 04/05/17 03:00 04/05/17 06:20 C-Reactive Protein, Quantitative 12.9 mg/dL (0.00-0.90) H Urine Color Yellow Urine Appearance Cloudy Urine pH 6 (4.5-8.0) Urine Specific Dendron 1.020 (1.005-1.035) Urine Protein 1+ (NEGATIVE) H Urine Glucose (UA) Negative (NEGATIVE) Urine Ketones Negative (NEGATIVE) Urine Occult Blood 3+ (NEGATIVE) H Urine Nitrite Negative (NEGATIVE) Urine Bilirubin Negative (NEGATIVE) Urine Urobilinogen 1 MG/DL (0.0-1.0) H Urine Leukocyte Esterase Negative (NEGATIVE) Urine RBC 10-15 /HPF (0 - 0) H Urine WBC 0-2 /HPF (0 - 0) Urine Squamous Epithelial Cells Occasional /LPF Urine Amorphous Sediment Many /LPF (NONE) H Urine Bacteria Few /HPF (NONE) White Blood Count 10.3 K/UL (4.8-10.8) Red Blood Count 4.73 M/UL (4.70-6.10) Hemoglobin 13.6 G/DL (14.2-18.0) L Hematocrit 40.4 % (42.0-52.0) L Mean Corpuscular Volume 86 FL (80-99) Mean Corpuscular Hemoglobin 28.7 PG (27.0-31.0) Mean Corpuscular Hemoglobin Concent 33.5 G/DL (32.0-36.0) Red Cell Distribution Width 13.9 % (11.6-14.8) Platelet Count 434 K/UL (150-450) Mean Platelet Volume 4.6 FL (6.5-10.1) L Neutrophils (%) (Auto) 70.8 % (45.0-75.0) Lymphocytes (%) (Auto) 16.2 % (20.0-45.0) L Monocytes (%) (Auto) 11.2 % (1.0-10.0) H Eosinophils (%) (Auto) 1.3 % (0.0-3.0) Basophils (%) (Auto) 0.6 % (0.0-2.0) Sodium Level 134 MMOL/L (136-145) L Potassium Level 3.2 MMOL/L (3.5-5.1) L Chloride Level 97 MMOL/L (98-107) L Carbon Dioxide Level 28 MMOL/L (21-32) Anion Gap 9 mmol/L (5-15) Blood Urea Nitrogen 21 mg/dL (7-18) H Creatinine 0.6 MG/DL (0.55-1.30) Estimat Glomerular Filtration Rate > 60 mL/min (>60) Glucose Level 90 MG/DL (74-106) Uric Acid 2.5 MG/DL (2.6-7.2) L Calcium Level 9.1 MG/DL (8.5-10.1) Phosphorus Level 3.1 MG/DL (2.5-4.9) Magnesium Level 2.0 MG/DL (1.8-2.4) Total Bilirubin 0.7 MG/DL (0.2-1.0) Aspartate Amino Transf (AST/SGOT) 30 U/L (15-37) Alanine Aminotransferase (ALT/SGPT) 53 U/L (12-78) Alkaline Phosphatase 120 U/L (46-116) H Troponin I 0.009 ng/mL (0.000-0.056) Pro-B-Type Natriuretic Peptide 955 pg/mL (0-125) H Total Protein 7.7 G/DL (6.4-8.2) Albumin 2.4 G/DL (3.4-5.0) L Globulin 5.3 g/dL Albumin/Globulin Ratio 0.5 (1.0-2.7) L Current Medications Medications (Trade) Dose Ordered Sig/Jeff Route PRN Reason Start Time Stop Time Status Last Admin Dose Admin Acetaminophen (Tylenol) 650 mg Q4H PRN ORAL Mild Pain/Temp > 100.5 03/31/17 23:45 04/30/17 23:44 04/03/17 20:01 Aspirin (Ecotrin) 81 mg DAILY ORAL 04/02/17 09:00 05/02/17 08:59 04/05/17 08:04 Atorvastatin Calcium (Lipitor) 10 mg BEDTIME ORAL 04/01/17 21:00 05/01/17 20:59 04/04/17 21:34 Clonidine HCl (Catapres Tab) 0.1 mg Q4H PRN ORAL For High Blood Pressure 04/01/17 00:15 05/01/17 00:14 Diltiazem HCl (Cardizem) 60 mg EVERY 8 HOURS ORAL 04/02/17 14:00 05/01/17 08:59 04/05/17 05:49 Docusate Sodium (Colace) 100 mg TID ORAL 04/01/17 18:00 05/01/17 08:59 04/05/17 08:04 Enoxaparin Sodium (Lovenox) 80 mg EVERY 12 HOURS SUBQ 04/01/17 11:30 05/01/17 11:29 04/05/17 08:10 Furosemide (Lasix) 40 mg DAILY IV 04/02/17 09:00 05/02/17 08:59 04/05/17 08:09 Levofloxacin (Levaquin) 750 mg DAILY ORAL 04/05/17 09:45 04/12/17 09:44 04/05/17 10:14 Metoprolol Succinate (Toprol XL) 50 mg BID ORAL 04/01/17 09:00 05/01/17 08:59 04/05/17 08:04 Olanzapine (ZyPREXA) 10 mg DAILY ORAL 04/01/17 09:00 05/01/17 08:59 04/05/17 08:03 Pantoprazole (Protonix) 40 mg DAILY ORAL 04/01/17 09:00 05/01/17 08:59 04/05/17 08:04 Potassium Chloride (K-Dur) 40 meq DAILY ORAL 04/03/17 11:00 05/03/17 10:59 04/05/17 08:09 Risperidone (RisperDAL) 1 mg Q6H PRN ORAL Agitation 04/01/17 15:45 05/01/17 15:44 04/03/17 01:37 Risperidone (RisperDAL) 2 mg QHS ORAL 04/01/17 21:00 05/01/17 20:59 04/04/17 21:34 Tamsulosin HCl (Flomax) 0.4 mg BEDTIME ORAL 04/01/17 21:00 05/01/17 20:59 04/04/17 21:34 Temazepam (Restoril) 30 mg HSPRN PRN ORAL Insomnia 03/31/17 23:45 04/07/17 23:44 04/03/17 01:37 ADRI PIKE Apr 05, 2017 10:30
--- NOTE | 2017-04-05 10:33 | Diagnostic Imaging Report ---
Indication: Reason For Exam: INFECT Technique: One view of the chest Comparison: 03/31/2017 Findings: Previously demonstrated left lung infiltrate has markedly improved, with only some residual atelectasis. Diffuse bilateral interstitial prominence persists, perhaps slightly improved. Upper limits normal heart size. Pleural spaces remain clear Impression: Improved left lung infiltrate, over 5 days Stable or perhaps slightly improved bilateral interstitial disease
[2017-04-05 11:52] VITALS: BP 137/76
--- NOTE | 2017-04-05 12:48 | Cardiac Electrophysiology PN ---
Assessment/Plan Assessment/Plan 1. Troponin elevation. The troponins are only marginally elevated and levels are coming down. The patient does not have any chest pain. Could be due to atrial fibrillation with rapid ventricular response. Continue metoprolol 50 mg, Lipitor 10 mg daily, and aspirin 81 mg daily. Stress test after PNA is fully resolved. Can be done as out patient. 2. Atrial fibrillation with RVR. On metoprolol 50 mg b.i.d.,Cardizem 60 mg every 8 hours. Change Lovenox 80 sq bid to Eliquis 5 bid 3. CHF due to diastolic dysfunction with BNP more than 8000.HFpEF EF 65%. Change Lasix to po 3. Hyperlipidemia, on Lipitor. 4. Schizophrenia, on Zyprexa. 5. Pneumonia, on antibiotics. DW RN Subjective Subjective In atrial fib with controlled rate. No events overnight. RN at bedside.DC planning to SNIF today Objective Last 24 Hour Vital Signs Date Time Temp Pulse Resp B/P (MAP) Pulse Ox O2 Delivery O2 Flow Rate FiO2 04/05/17 11:52 98.1 88 20 137/76 95 Nasal Cannula 4.0 04/05/17 08:04 79 141/81 04/05/17 08:00 89 04/05/17 07:47 97.0 79 20 141/81 95 Nasal Cannula 4.0 04/05/17 05:49 92 135/82 04/05/17 04:00 97.8 100 18 139/77 94 Nasal Cannula 4.0 04/05/17 04:00 88 04/05/17 00:00 98.4 77 20 140/81 96 Nasal Cannula 4.0 04/05/17 00:00 85 04/04/17 21:41 96 165/101 04/04/17 20:00 80 04/04/17 20:00 97.5 89 20 144/82 97 Nasal Cannula 4.0 04/04/17 17:17 65 149/80 04/04/17 16:00 78 04/04/17 16:00 97.1 65 20 149/80 98 Nasal Cannula 4.0 04/04/17 13:09 71 125/81 Intake and Output 04/04/17 04/05/17 19:00 07:00 Intake Total 116 ml 142.5 ml Output Total 200 ml Balance 116 ml -57.5 ml Intake Oral 116 ml IV Total 142.5 ml Output Urine Total 200 ml # Voids 1 1 Laboratory Tests Test 04/05/17 03:00 04/05/17 06:20 Urine Color Yellow Urine Appearance Cloudy Urine pH 6 (4.5-8.0) Urine Specific [place] 1.020 (1.005-1.035) Urine Protein 1+ (NEGATIVE) H Urine Glucose (UA) Negative (NEGATIVE) Urine Ketones Negative (NEGATIVE) Urine Occult Blood 3+ (NEGATIVE) H Urine Nitrite Negative (NEGATIVE) Urine Bilirubin Negative (NEGATIVE) Urine Urobilinogen 1 MG/DL (0.0-1.0) H Urine Leukocyte Esterase Negative (NEGATIVE) Urine RBC 10-15 /HPF (0 - 0) H Urine WBC 0-2 /HPF (0 - 0) Urine Squamous Epithelial Cells Occasional /LPF Urine Amorphous Sediment Many /LPF (NONE) H Urine Bacteria Few /HPF (NONE) White Blood Count 10.3 K/UL (4.8-10.8) Red Blood Count 4.73 M/UL (4.70-6.10) Hemoglobin 13.6 G/DL (14.2-18.0) L Hematocrit 40.4 % (42.0-52.0) L Mean Corpuscular Volume 86 FL (80-99) Mean Corpuscular Hemoglobin 28.7 PG (27.0-31.0) Mean Corpuscular Hemoglobin Concent 33.5 G/DL (32.0-36.0) Red Cell Distribution Width 13.9 % (11.6-14.8) Platelet Count 434 K/UL (150-450) Mean Platelet Volume 4.6 FL (6.5-10.1) L Neutrophils (%) (Auto) 70.8 % (45.0-75.0) Lymphocytes (%) (Auto) 16.2 % (20.0-45.0) L Monocytes (%) (Auto) 11.2 % (1.0-10.0) H Eosinophils (%) (Auto) 1.3 % (0.0-3.0) Basophils (%) (Auto) 0.6 % (0.0-2.0) Sodium Level 134 MMOL/L (136-145) L Potassium Level 3.2 MMOL/L (3.5-5.1) L Chloride Level 97 MMOL/L (98-107) L Carbon Dioxide Level 28 MMOL/L (21-32) Anion Gap 9 mmol/L (5-15) Blood Urea Nitrogen 21 mg/dL (7-18) H Creatinine 0.6 MG/DL (0.55-1.30) Estimat Glomerular Filtration Rate > 60 mL/min (>60) Glucose Level 90 MG/DL (74-106) Uric Acid 2.5 MG/DL (2.6-7.2) L Calcium Level 9.1 MG/DL (8.5-10.1) Phosphorus Level 3.1 MG/DL (2.5-4.9) Magnesium Level 2.0 MG/DL (1.8-2.4) Total Bilirubin 0.7 MG/DL (0.2-1.0) Aspartate Amino Transf (AST/SGOT) 30 U/L (15-37) Alanine Aminotransferase (ALT/SGPT) 53 U/L (12-78) Alkaline Phosphatase 120 U/L (46-116) H Troponin I 0.009 ng/mL (0.000-0.056) Pro-B-Type Natriuretic Peptide 955 pg/mL (0-125) H Total Protein 7.7 G/DL (6.4-8.2) Albumin 2.4 G/DL (3.4-5.0) L Globulin 5.3 g/dL Albumin/Globulin Ratio 0.5 (1.0-2.7) L Objective HEAD AND NECK: No JVD. LUNGS: Coarse rhonchi bilaterally. CARDIOVASCULAR: Irregular S1-S2 with no gallop or murmur. ABDOMEN: Soft. EXTREMITIES: No pitting edema. DORINDA WEN Apr 05, 2017 12:48
[2017-04-05] MEDS ORDERED: ELIQUIS5 MG PO (13:34)
[2017-04-05] MEDS ORDERED: FUROSEMIDE40 MG/5 ML ORAL (13:36)
[2017-04-05] MEDS ORDERED: POTASSIUM CHLO20 ME1 ORAL (13:38)
[2017-04-05] MEDS ORDERED: LASIX40 MG ORAL (13:39)
[2017-04-05] MEDS ORDERED: LEVAQUIN750 MG ORAL (13:41)
[2017-04-05 14:01] VITALS: BP 137/76
[2017-04-05] MEDS ORDERED: Eliquis 2.5mg tablet ORAL SCH (18:00)
--- NOTE | 2017-04-05 18:36 | General Progress Note ---
Assessment/Plan Status: stable Assessment/Plan encephalopathy -cont current meds Subjective Date patient seen: Apr 05, 2017 Neurologic/Psychiatric: Reports: anxiety, depressed, emotional problems Allergies: Coded Allergies: HALOPERIDOL (Verified Allergy, Mild, 03/31/17) Objective Last 24 Hour Vital Signs Date Time Temp Pulse Resp B/P (MAP) Pulse Ox O2 Delivery O2 Flow Rate FiO2 04/05/17 14:01 88 137/76 04/05/17 12:00 93 04/05/17 11:52 98.1 88 20 137/76 95 Nasal Cannula 4.0 04/05/17 08:04 79 141/81 04/05/17 08:00 89 04/05/17 07:47 97.0 79 20 141/81 95 Nasal Cannula 4.0 04/05/17 05:49 92 135/82 04/05/17 04:00 97.8 100 18 139/77 94 Nasal Cannula 4.0 04/05/17 04:00 88 04/05/17 00:00 98.4 77 20 140/81 96 Nasal Cannula 4.0 04/05/17 00:00 85 04/04/17 21:41 96 165/101 04/04/17 20:00 80 04/04/17 20:00 97.5 89 20 144/82 97 Nasal Cannula 4.0 Intake and Output 04/04/17 04/05/17 19:00 07:00 Intake Total 116 ml 142.5 ml Output Total 200 ml Balance 116 ml -57.5 ml Intake Oral 116 ml IV Total 142.5 ml Output Urine Total 200 ml # Voids 1 1 Laboratory Tests 04/05/17 03:00: Urine Color Yellow, Urine Appearance Cloudy, Urine pH 6, Urine Specific [place] 1.020, Urine Protein 1+H, Urine Glucose (UA) Negative, Urine Ketones Negative, Urine Occult Blood 3+H, Urine Nitrite Negative, Urine Bilirubin Negative, Urine Urobilinogen 1H, Urine Leukocyte Esterase Negative, Urine RBC 10-15H, Urine WBC 0-2, Urine Squamous Epithelial Cells Occasional, Urine Amorphous Sediment ManyH , Urine Bacteria Few 04/05/17 06:20: White Blood Count 10.3, Red Blood Count 4.73, Hemoglobin 13.6L, Hematocrit 40.4L , Mean Corpuscular Volume 86, Mean Corpuscular Hemoglobin 28.7, Mean Corpuscular Hemoglobin Concent 33.5, Red Cell Distribution Width 13.9, Platelet Count 434, Mean Platelet Volume 4.6L, Neutrophils (%) (Auto) 70.8, Lymphocytes ( %) (Auto) 16.2L, Monocytes (%) (Auto) 11.2H, Eosinophils (%) (Auto) 1.3, Basophils (%) (Auto) 0.6, Sodium Level 134L, Potassium Level 3.2L, Chloride Level 97L, Carbon Dioxide Level 28, Anion Gap 9, Blood Urea Nitrogen 21H, Creatinine 0.6, Estimat Glomerular Filtration Rate > 60, Glucose Level 90, Uric Acid 2.5L, Calcium Level 9.1, Phosphorus Level 3.1, Magnesium Level 2.0, Total Bilirubin 0.7, Aspartate Amino Transf (AST/SGOT) 30, Alanine Aminotransferase ( ALT/SGPT) 53, Alkaline Phosphatase 120H, Troponin I 0.009, Pro-B-Type Natriuretic Peptide 955H, Total Protein 7.7, Albumin 2.4L, Globulin 5.3, Albumin /Globulin Ratio 0.5L Height (Feet): 6 Weight (Pounds): 155 General Appearance: no apparent distress, alert, confused, agitated Jag Chappell M.D. Apr 05, 2017 18:36
--- NOTE | 2017-04-05 18:37 | Psych Consult Progress Note ---
Psych Consult Progress Note Vital Signs Last 24 Hour Vital Signs Date Time Temp Pulse Resp B/P (MAP) Pulse Ox O2 Delivery O2 Flow Rate FiO2 04/05/17 14:01 88 137/76 04/05/17 12:00 93 04/05/17 11:52 98.1 88 20 137/76 95 Nasal Cannula 4.0 04/05/17 08:04 79 141/81 04/05/17 08:00 89 04/05/17 07:47 97.0 79 20 141/81 95 Nasal Cannula 4.0 04/05/17 05:49 92 135/82 04/05/17 04:00 97.8 100 18 139/77 94 Nasal Cannula 4.0 04/05/17 04:00 88 04/05/17 00:00 98.4 77 20 140/81 96 Nasal Cannula 4.0 04/05/17 00:00 85 04/04/17 21:41 96 165/101 04/04/17 20:00 80 04/04/17 20:00 97.5 89 20 144/82 97 Nasal Cannula 4.0 Labs Laboratory Tests Test 04/05/17 03:00 04/05/17 06:20 Urine Color Yellow Urine Appearance Cloudy Urine pH 6 (4.5-8.0) Urine Specific [place] 1.020 (1.005-1.035) Urine Protein 1+ (NEGATIVE) H Urine Glucose (UA) Negative (NEGATIVE) Urine Ketones Negative (NEGATIVE) Urine Occult Blood 3+ (NEGATIVE) H Urine Nitrite Negative (NEGATIVE) Urine Bilirubin Negative (NEGATIVE) Urine Urobilinogen 1 MG/DL (0.0-1.0) H Urine Leukocyte Esterase Negative (NEGATIVE) Urine RBC 10-15 /HPF (0 - 0) H Urine WBC 0-2 /HPF (0 - 0) Urine Squamous Epithelial Cells Occasional /LPF Urine Amorphous Sediment Many /LPF (NONE) H Urine Bacteria Few /HPF (NONE) White Blood Count 10.3 K/UL (4.8-10.8) Red Blood Count 4.73 M/UL (4.70-6.10) Hemoglobin 13.6 G/DL (14.2-18.0) L Hematocrit 40.4 % (42.0-52.0) L Mean Corpuscular Volume 86 FL (80-99) Mean Corpuscular Hemoglobin 28.7 PG (27.0-31.0) Mean Corpuscular Hemoglobin Concent 33.5 G/DL (32.0-36.0) Red Cell Distribution Width 13.9 % (11.6-14.8) Platelet Count 434 K/UL (150-450) Mean Platelet Volume 4.6 FL (6.5-10.1) L Neutrophils (%) (Auto) 70.8 % (45.0-75.0) Lymphocytes (%) (Auto) 16.2 % (20.0-45.0) L Monocytes (%) (Auto) 11.2 % (1.0-10.0) H Eosinophils (%) (Auto) 1.3 % (0.0-3.0) Basophils (%) (Auto) 0.6 % (0.0-2.0) Sodium Level 134 MMOL/L (136-145) L Potassium Level 3.2 MMOL/L (3.5-5.1) L Chloride Level 97 MMOL/L (98-107) L Carbon Dioxide Level 28 MMOL/L (21-32) Anion Gap 9 mmol/L (5-15) Blood Urea Nitrogen 21 mg/dL (7-18) H Creatinine 0.6 MG/DL (0.55-1.30) Estimat Glomerular Filtration Rate > 60 mL/min (>60) Glucose Level 90 MG/DL (74-106) Uric Acid 2.5 MG/DL (2.6-7.2) L Calcium Level 9.1 MG/DL (8.5-10.1) Phosphorus Level 3.1 MG/DL (2.5-4.9) Magnesium Level 2.0 MG/DL (1.8-2.4) Total Bilirubin 0.7 MG/DL (0.2-1.0) Aspartate Amino Transf (AST/SGOT) 30 U/L (15-37) Alanine Aminotransferase (ALT/SGPT) 53 U/L (12-78) Alkaline Phosphatase 120 U/L (46-116) H Troponin I 0.009 ng/mL (0.000-0.056) Pro-B-Type Natriuretic Peptide 955 pg/mL (0-125) H Total Protein 7.7 G/DL (6.4-8.2) Albumin 2.4 G/DL (3.4-5.0) L Globulin 5.3 g/dL Albumin/Globulin Ratio 0.5 (1.0-2.7) L Problems: (1) Shortness of breath (2) PNA (pneumonia) (3) Hypertension, uncontrolled (4) Hyponatremia (5) Anemia Assessment & Plan: ASSESSMENT: Agitation. PLAN: 1. We will continue with the current medications. 2. We will continue to follow and readjust the medications. Jag Chappell M.D. Apr 05, 2017 18:37
[2017-04-06] MEDS ORDERED: Furosemide 40mg tab ORAL SCH (09:00)
--- NOTE | 2017-04-07 21:56 | Diagnostic Imaging Report ---
APPROVED REPORT CPT Code: 76526 Present Symptoms Shortness of breath BILATERAL: Imaging reveals a patent deep venous system bilaterally. There is no evidence of thrombus within the femoral, popliteal or tibial segments. The greater saphenous veins are also within normal limits. Doppler indicates normal spontaneous flow within these segments.
--- NOTE | 2017-04-08 11:23 | Discharge Summary ---
Discharge Summary Hospital Course Date of Admission Mar 31, 2017 at 21:16 Date of Discharge Apr 05, 2017 at 15:30 Admitting Diagnosis SHORTNESS OF BREATH, PNUEMONIA HPI Joel Levy is a 61 year old male who was admitted on Mar 31, 2017 at 21: 16 for Shortness Of Breath, Pneumonia Hospital Course DC SUMMARY #[id number] Discharge Medications Continued Medications: Acetaminophen* (Acetaminophen 325MG Tablet*) 325 Mg Tablet 650 MG ORAL Q4H PRN for For Pain, TAB Apixaban (Eliquis) 5 Mg Tablet 5 MG PO BID, TAB Atorvastatin Calcium* (Atorvastatin Calcium*) 20 Mg Tablet 10 MG ORAL BEDTIME, TAB Calcium Carbonate/Vitamin D3 (Calcium 500 + Vit D 200 Caplet) 1 Each Tablet 1 EACH PO DAILY, TAB Docusate Sodium (Docusate Sodium) 50 Mg/5 Ml Liquid 100 MG GT DAILY, EA Furosemide* (Lasix*) 40 Mg Tablet 40 MG ORAL DAILY, TAB Levofloxacin* (Levaquin*) 750 Mg Tablet 750 MG ORAL DAILY, TAB Metoprolol Succinate* (Toprol Xl*) 50 Mg Tab.er.24h 50 MG ORAL BID, TAB Olanzapine* (Zyprexa*) 10 Mg Tablet 10 MG ORAL DAILY, #30 TAB 0 Refills Potassium Chloride* (K-Dur*) 20 Meq Tab.er.prt 40 MEQ ORAL DAILY, #7 TAB 0 Refills Tamsulosin Hcl (Tamsulosin Hcl*) 0.4 Mg Cap.er.24h 0.4 MG ORAL BEDTIME, CAP Temazepam* (Temazepam*) 30 Mg Capsule 15 MG ORAL BEDTIME PRN for Insomnia, CAP Discharge Condition Upon Discharge: stable Discharge Disposition Patient was discharged to SNF/Subacute Facility(03) Discharge Diagnoses: Discharge Instructions Discharge Instructions Special Instructions I have been assigned to complete a D/C Summary on this account. I was not involved in the patient management Arlyn Francis NP (Vanchtein) Apr 08, 2017 11:23
--- NOTE | 2017-04-08 23:46 | Discharge Summary ---
DATE OF ADMISSION: 03/31/2017 DATE OF DISCHARGE: 04/05/2017 REASON FOR ADMISSION: 61-year-old male, resident of shelter facility with history of hypertension, hyperlipidemia, anemia, schizophrenia was sent to emergency room for evaluation secondary to cough and fever for three days. The patient by himself was a poor historian, but reported productive cough with clear nonbloody sputum. Denied myalgia. In the emergency department, the patient was found to be tachycardic and tachypneic with leukocytosis, no fever. Noted elevated troponin - 0.528. Sodium -128. EKG showed atrial fibrillation with rapid ventricular response. Leukocytosis -16.2. Chest x-ray revealed CHF and probable superimposed left lung infiltrate. Pro BNP -3630. The patient was admitted with diagnoses of sepsis, healthcare associated pneumonia, non-STEMI, hyponatremia, atrial fibrillation with rapid ventricular response, CHF. HOSPITAL COURSE: The patient admitted to telemetry floor. Cardiology, Nephrology, ID, and Psychiatric evaluations were requested along with conductor/engineer evaluation. The patient was followed up with serial troponin. Troponin from initial 0.528 trending down, the last troponin was negative. EKG showed atrial fibrillation. Echocardiogram revealed preserved ejection fraction of 60% to 65%, right ventricular systolic pressure of 32, no mitral regurgitation, mitral inflow velocity indicated implying significant left ventricular diastolic dysfunction. Surveillance Dual Rate Officer closely followed. According to package line relief operator, troponin were only marginally elevated and levels were coming down. The pattern was not suggestive of acute coronary syndrome. The patient did not have any chest pain. Marginal elevation in troponin may be due to atrial fibrillation with rapid ventricular response, as per package line relief operator . Rate was controlled with beta-kenna and Cardizem. Anticoagulation initially was with Lovenox, upon discharge changed to Eliquis. The patient was on medical management with beta-kenna, statin, and aspirin. CHF exacerbation due to diastolic dysfunction. The patient was diuresed with Lasix IV initially. Cardiorenal parameters and volumes were closely monitored. Subsequently Lasix was changed to oral. Surveillance Dual Rate Officer recommended stress test as outpatient after pneumonia fully resolved. ProBNP from initial 3638 down to 955. The patient was on antibiotics for healthcare-associated pneumonia. ID closely followed. T The patient status post IV antibiotic course while in the hospital. Patient will need to continue for two more days oral Levaquin as per ID recommendation to complete the course. Blood cultures were negative. Urine culture was negative. Sputum culture was not collected since the patient did not provide any specimen. Followup chest x-ray revealed improved left lung infiltrate over five days. Venous duplex bilateral lower extremities was negative for acute DVT. Oversize Load Pilot Escort closely followed the patient for hyponatremia, sodium was initially 128. According to loan closer, acute hyponatremia was likely psychogenic secondary to increased water intake. Fluid restriction was implemented. Sodium up to 134 prior to discharge. Anemia workup revealed anemia of chronic disease. Education Officer closely followed. Anemia workup also revealed low iron, the patient status post Venofer x1. Gastrointestinal prophylaxis provided. Bowel regimen instituted. Pain management provided. Psychiatrist seen and evaluated the patient, diagnosed the patient with encephalopathy and schizophrenia. Psychiatric medication regimen was optimized as per psychiatrist. The patient was stable for discharge back to shelter facility. FINAL DIAGNOSES: 1. Sepsis. 2. Pneumonia. 3. Congestive heart failure with diastolic dysfunction. 4. Elevated troponin likely secondary to atrial fibrillation with rapid ventricular response. 5. Atrial fibrillation with rapid ventricular response. 6. Hyperlipidemia. 7. Acute hyponatremia likely psychogenic secondary to increased water intake. 8. Hypertensive urgency, resolved. 9. Anemia of chronic disease. 10. Encephalopathy. 11. Schizophrenia. DISCHARGE MEDICATIONS: See medication reconciliation list. DISCHARGE INSTRUCTIONS: The patient discharged to shelter facility. FOLLOWUP: Followup with medical doctor at the facility. Michel Connelly M.D. I have been assigned to dictate discharge summary on this account and I was not involved in the patient's management. Arlyn Francis (Vanchtein) NNoah DR: Radha JOB#: [id number] CC: ALETHA
--- NOTE | 2017-04-26 09:50 | Cardiology Report ---
APPROVED REPORT EXAM: Two-dimensional and M-mode echocardiogram with Doppler and color Doppler. INDICATION Chest Pain M-Mode DIMENSIONS IVSd1.2 (0.7-1.1cm)Left Atrium (MM)4.6 (1.6-4.0cm) LVDd4.5 (3.5-5.6cm)Aortic Root2.7 (2.0-3.7cm) PWd1.3 (0.7-1.1cm)Aortic Cusp Exc.1.7 (1.5-2.0cm) LVDs2.8 (2.5-4.0cm) PWs1.6 cm Normal left ventricular chamber size, systolic function and wall motion. Left ventricular ejection fraction estimated to be 60-65%. No evidence of left ventricular hypertrophy. Small anterior pericardial effusion. Right cardiac chamber sizes are within normal limits. Moderate left atrial enlargement by 2D. Focal aortic valve sclerosis with adequate cusp excursion. Thickened mitral valve leaflets with normal excursion. Mild mitral annulus and aortic root calcification. Pulmonic valve is well visualized. Normal tricuspid valve structure. IVC dilated at 2.8 cm and non-collapsible with respiration indicate increased RA pressure. RA pressure of 15mmHg. A color flow and spectral Doppler study was performed and revealed: No aortic regurgitation. No mitral regurgitation. Mitral inflow velocities indicates possible pseudo normalization pattern implying significant left ventricular diastolic dysfunction. Mild tricuspid regurgitation. Tricuspid systolic velocities suggests peak right ventricular systolic pressure of 32mmHg
== END 2017-04-05 15:30 | DRG 871 ==
LOC: EDBD 20:14 → EMR 21:12 → 2E 21:16 → EDBEDREQSVC 21:50 → EDBEDREQ 21:50
DX: A41.9 Sepsis, unspecified organism (principal); J18.9 Pneumonia, unspecified organism; G93.40 Encephalopathy, unspecified; I11.0 Hypertensive heart disease with heart failure; I50.30 Unspecified diastolic (congestive) heart failure; E87.1 Hypo-osmolality and hyponatremia; I48.91 Unspecified atrial fibrillation; Z88.8 Allergy status to other drugs, medicaments and biological substances; F20.9 Schizophrenia, unspecified; E78.5 Hyperlipidemia, unspecified; F41.9 Anxiety disorder, unspecified; I25.2 Old myocardial infarction; D63.8 Anemia in other chronic diseases classified elsewhere; Z79.01 Long term (current) use of anticoagulants; I16.0 Hypertensive urgency
CPT/HCPCS: 36415; 71045; 80053; 80061; 81003; 82164; 82248; 82607; 82728; 82746; 82977; 83036; 83540; 83550; 83605; 83735; 83880; 83930; 83935; 84100; 84300; 84443; 84484; 84550; 85007; 85025; 85610; 85730; 86140; 87040; 87081; 87086; 93005; 93306; 93970; 99285; J8499